=== PATIENT | female | born 1945 | race Caucasian/White ===

== ENCOUNTER 2022-01-31 08:48 | Outpatient (REF) | payer MEDICARE, OTHER, SELFPAY ==
--- NOTE | ~2022-01-31 | US_ITS ---
EXAMINATION: US ABDOMEN COMPLETE CLINICAL INFORMATION: Other specified abnormal findings of blood chemistry. COMPARISON: None TECHNIQUE: Real-time imaging of the abdominal viscera. Technically difficult study secondary to bowel gas and body habitus. FINDINGS: PANCREAS: Obscured by overlying bowel gas. ABDOMINAL AORTA: The proximal portion of the aorta is not well visualized, the mid and distal portions are unremarkable. INFERIOR VENA CAVA: Visualized portions of the IVC are unremarkable. LIVER: The liver is normal in size. The liver contour is normal. Increased hepatic echogenicity suggesting hepatic steatosis. No focal hepatic lesion. There is no intrahepatic biliary duct dilatation seen. GALLBLADDER: Surgically absent. COMMON BILE DUCT: Not well visualized. RIGHT KIDNEY: Cystic focus in the right renal interpolar region measuring up to 1.1 cm, simple appearing, which does not require follow-up. No hydronephrosis or renal calculi. The kidney measures 11.8 cm in maximum dimension. LEFT KIDNEY: Multiple cystic foci throughout the left kidney the largest measuring up to 2.1 cm in the lower pole, simple appearing, which does not require follow-up. No hydronephrosis or renal calculi. The kidney measures 11.9 cm in maximum dimension. SPLEEN: Normal. The spleen measures 12.3 cm in maximum dimension. FREE FLUID: None. US/US abdomen complete IMPRESSION: 1. Technical limitation secondary to patient body habitus. 2. Increased hepatic echogenicity suggesting hepatic steatosis. 3. Status post cholecystectomy. 4. Bilateral simple appearing renal cysts the largest measuring up to 2.1 cm in the lower pole of the left kidney, which do not require follow-up.
== END 2022-01-31 08:49 | disposition home or self-care (01) ==
LOC: HO.US 08:48
PROVIDERS: Visit Provider Internal Medicine
DX: R79.89 Other specified abnormal findings of blood chemistry (principal); R10.11 Right upper quadrant pain
CPT/HCPCS: 76700

== ENCOUNTER 2022-02-25 17:56 | Emergency (ER) | payer MEDICARE, OTHER, SELFPAY ==
--- NOTE | 2022-02-25 | ECG_ITS ---
Test Reason : chest pain Blood Pressure : / mmHG Vent. Rate : 090 BPM Atrial Rate : 090 BPM P-R Int : 168 ms QRS Dur : 090 ms QT Int : 382 ms P-R-T Axes : 056 018 032 degrees QTc Int : 467 ms Normal sinus rhythm Normal ECG When compared with ECG of 04-OCT-2018 10:40, No significant change was found Referred By: Generic ED Physician Electronically Signed By:Jack Ibarra
--- NOTE | ~2022-02-25 | XR_ITS ---
EXAMINATION: PORTABLE CHEST 1 VIEW CLINICAL INFORMATION: Congestion . COMPARISON: No recent pertinent prior studies are available for comparison. TECHNIQUE: Portable frontal view of the chest was obtained. FINDINGS: The lungs are well expanded. No focal infiltrate, effusion, edema, or pneumothorax. Cardiac and mediastinal silhouettes are within normal limits for technique. No acute bony abnormality seen. XR/XR chest 1V IMPRESSION: No evidence of acute disease.
[2022-02-25 18:06] VITALS: BP 211/75; PULSE 89; RESP 20; TEMP 37.3; O2SAT 94; BMI 37.1
[2022-02-25 20:43] LABS: COVID-19 Test Negative (Negative); IDNOW Serial# 08D9AD1C; Influenza A Negative (Negative); Influenza B2 Negative (Negative)
[2022-02-25 20:48] LABS: Appearance Urine HAZY; Color Urine YELLOW; Glucose Urine UA NEG (NEG); Leukocyte Esterase Urine 1+ (NEG); Nitrite Urine NEG (NEG); UACC Culture Trigger YES; Urine Blood NEG (NEG); Urine Ketones NEG (NEG); Urine Protein NEG (NEG-TRACE)
[2022-02-25 21:00] LABS: Mucus Urine 1+ /LPF; RBC Urine 0 /HPF (0); Squamous Epithelial Cell Urine 1+ /LPF
== END 2022-02-26 00:39 | disposition left against medical advice (07) ==
LOC: HO.ED 02-26 00:27
PROVIDERS: Emergency Provider Emergency Medicine; PCP Internal Medicine
DX: R09.89 Other specified symptoms and signs involving the circulatory and respiratory systems (principal); R07.89 Other chest pain; Z20.822 Contact with and (suspected) exposure to COVID-19
CPT/HCPCS: 71045; 81001; 87086; 87502; 87635; 93005; 99283

== ENCOUNTER 2022-05-09 13:32 | Outpatient (REF) | payer MEDICARE, OTHER, SELFPAY ==
[2022-05-09 14:12] LABS: Appearance Urine HAZY; Color Urine YELLOW; Glucose Urine UA NEG (NEG); Leukocyte Esterase Urine 1+ (NEG); Nitrite Urine NEG (NEG); PH 5.5 (5.0-8.0); Specific Gravity - Urine 1.025 (1.005-1.025); UACC Culture Trigger YES; Urine Blood NEG (NEG); Urine Ketones NEG (NEG); Urine Protein NEG (NEG-TRACE)
[2022-05-09 14:20] LABS: Squamous Epithelial Cell Urine 2+ /LPF
[2022-05-09 14:21] LABS: WBC Urine 50-75 /HPF (0-4)
[2022-05-09 14:22] LABS: Oval Fat Bodies Urine NOTED; Renal Epithelial Cells Urine 1+ /LPF
[2022-05-09 14:23] LABS: Bacteria Urine 1+ /LPF; Hyaline Casts Urine 0-2 /LPF; RBC Urine 0-2 /HPF (0)
== END 2022-05-09 13:33 | disposition home or self-care (01) ==
LOC: HO.LAB 13:32
PROVIDERS: PCP Internal Medicine; Visit Provider Internal Medicine
DX: N39.41 Urge incontinence (principal)
CPT/HCPCS: 81001; 87086

== ENCOUNTER 2023-01-30 11:07 | Outpatient (REF) | payer MEDICARE, OTHER, SELFPAY ==
--- NOTE | ~2023-01-30 | US_ITS ---
EXAMINATION: US THYROID CLINICAL INFORMATION: Nontoxic single thyroid nodule. COMPARISON: None available. TECHNIQUE: Linear transducer grayscale and color Doppler examination with attention to the region of the thyroid. FINDINGS: SIZE: Measurements of the thyroid lobes and nodules are given in sagittal, anteroposterior and transverse dimensions respectively. Right Thyroid Lobe: 4.4 x 2.0 x 1.7 cm, volume 7.8 mL. Parenchyma: The gland echotexture is homogeneous. Thyroid vascularity is normal. Left Thyroid Lobe: 4.5 x 1.5 x 1.4 cm, volume 4.9 mL. Parenchyma: The gland echotexture is homogeneous. Thyroid vascularity is normal. Isthmus: 0.48 cm in maximum AP dimension. Estimated total number of nodules greater than or equal to 1 cm: 1. Cutter And Edge Trimmer nodules are described as follows: 1. Location: Right superior/mid. Size: 1.1 x 0.6 x 1.0 cm, volume 0.3 mL. Nodule characteristics: Composition: Spongiform (0). Echogenicity: Anechoic (0). Shape: Not taller than wide (0). Margins: Smooth (0). Echogenic Foci: None (0). ACR TI-RADS total points: 0 ACR TI-RADS category: 1 2. Location: Left superior. Size: 0.3 x 0.2 x 0.3 cm, volume 0.009 mL. Nodule characteristics: Composition: Cystic(0). ACR TI-RADS total points: 0 ACR TI-RADS category: 1 3. Location: Left superior. Size: 0.3 x 0.2 x 0.3 cm, volume 0.009 mL. Nodule characteristics: Composition: Cystic(0). ACR TI-RADS total points: 0 ACR TI-RADS category: 1 4. Location: Left mid. Size: 0.4 x 0.3 x 0.3 cm, volume 0.019 mL. Nodule characteristics: Composition: Cystic(0). ACR TI-RADS total points: 0 ACR TI-RADS category: 1 NODES: No lymphadenopathy is seen in the tissue surrounding the thyroid gland. US/US thyroid IMPRESSION: Bilateral thyroid nodules are seen, as detailed. ACR TI-RADS RECOMMENDATION REFERENCE: Ultrasound-guided fine-needle aspiration, followup ultrasound, no further follow up. * TR1 (0 point) and TR2 (2 points): No FNA or follow up. * TR3 (3 points): FNA if more than or equal to 2.5 cm in maximum dimension, followup ultrasound in 1, 3 and 5 years if 1.5 to 2.4 cm in maximum dimension. * TR4 (4-6 points): FNA if more than or equal to 1.5 cm in maximum dimension, followup ultrasound in 1, 2, 3 and 5 years if 1 to 1.4 cm in maximum dimension. * TR5 (more than or equal to 7 points): FNA if more than or equal to 1 cm in maximum dimension, followup ultrasound every year for 5 years if 0.5 to 0.9 cm in maximum dimension. * TR3, TR4 or TR5 nodules that are below the size threshold for followup receive no follow up.
== END 2023-01-30 11:08 | disposition home or self-care (01) ==
LOC: HO.US 11:07
PROVIDERS: Visit Provider Internal Medicine
DX: E04.1 Nontoxic single thyroid nodule (principal)
CPT/HCPCS: 76536

== ENCOUNTER 2023-05-09 10:57 | Outpatient (AMB) | payer MEDICARE, OTHER, SELFPAY ==
--- NOTE | 2023-05-09 11:00 | A.OFFVIS_ITS ---
Intake Vital Signs 05/09/23 11:05 Height 5 ft 6 in Weight 233 lb 0.6 oz BMI 37.6 BP 142/90 H Blood Pressure Location Lt brachial Position Sitting Pulse 64 Pulse Source Pulse Oximeter Temp Source Skin Pulse Oximetry (%) 97 Oxygen Delivery Method Room Air Intake Visit Reasons: awv Intake Note: Patient is here for an Annual Wellness Visit. Collection Team Lead Required: No Allergies propoxyphene [From Darvon] Adverse Reaction (Mild, Verified 05/09/23 11:07) NAUSEA & VOMITING Fall Risk Assessment Fall risk assessment: No Falls in past year Date Fall Risk Assessed: 05/09/23 HPI HPI Comments History of Present Illness Details 77-year-old female past medical history significant for type 2 diabetes mellitus, CKD, peripheral vascular disease, GERD, hypercholesteremia, hypertension and obesity. Patient last seen in August patient presents today for an annual well visit. Patient had negative Cologuard screening in March 2022, recommended follow-up in 3 years. Patient reports bilateral lower extremity swelling states has been torsemide for years for this, patient reports was previously on 20 mg daily and was currently on 15 mg due to her kidney function being elevated in the past. Patient wondering if she can increase her torsemide to 20 mg daily. Will draw BNP and CMP to look at her kidney function. Patient advised to continue on 15mg torsemide daily until blood work is evaluated. Mammogram: Last done a few years ago, Currently refusing. Bone density screening:Refused Patient up today on recommended immunizations. [place] of care was reviewed with the patient patient was provided with a written screening schedule. [facility] Medical History (Updated 02/06/23 @ 15:09 by Joo Roberson MD) Breast cancer screening by mammogram Cataract Colon cancer screening Colonoscopy refused Constipation GERD (gastroesophageal reflux disease) Hemoptysis History of pericarditis Hypercholesterolemia Hypertension Obesity (BMI 30-39.9) Patellofemoral arthritis Peripheral vascular disease Respiratory tract infection RUQ abdominal pain Shortness of breath on exertion Thyroid nodule Urge incontinence Vitamin D deficiency Surgical History History of appendectomy History of cholecystectomy History of tubal ligation History of umbilical hernia repair Family History (Updated 10/19/20 @ 10:50 by KATHERIN Stiles) Father CAD (coronary artery disease) Diabetes CVD (cardiovascular disease) Mother CVD (cardiovascular disease) CHF (congestive heart failure) Brother DISH (diffuse idiopathic skeletal hyperostosis) Social History (Updated 03/13/22 @ 12:10 by Joo Roberson MD) Housing: House Alcohol intake: never Patient Tobacco Use Status: Former Tobacco user Years Smoked: smoked 6 months during youth but since that time has not smoked any e-Cigarette/Vaping Use: Never Used Second Hand Smoke Exposure: No Current occupational status: retired Cognitive needs: No Hearing needs: No Vision needs: Yes Questionnaire Medicare Wellness Checkup [age] What gender do you identify with?: female During the past 4 weeks, how much have you been bothered by emotional problems such as feeling anxious, depressed, irritable, sad or downhearted, and blue?: slightly During the past 4 weeks, has your physical & emotional health limited your social activities with family, friends, neighbors, or groups?: not at all During the past 4 weeks, how much bodily pain have you generally had?: moderate pain During the past 4 weeks, was someone available to help you if you needed & wanted help?: yes, as much as I wanted During the past 4 weeks, what was the hardest physical activity you could do for at least 2 minutes?: heavy Can you get to places out of walking distance without help? (For eg., can you travel alone on buses, taxis or drive your car?): Yes Can you go shopping for groceries or clothes without someone's help?: Yes Can you prepare your own meals?: Yes Can you do your housework without help?: Yes Because of any health problems, do you need the help of another person with your personal care needs such as eating, bathing, dressing or getting around the house?: No Can you handle your own money without help?: Yes During the past 4 weeks, how would you rate your health in general?: fair During the past 4 weeks how have things been going for you?: good & bad parts about equal Are you having difficulties driving your car?: no Do you always fasten your seat belt when you are in a car?: yes, usually During past 4 weeks, have you been bothered by the following: never: Sexual problems?, Trouble eating well?, Teeth or denture problems? and Problems using the telephone?, sometimes: Falling or dizzy when standing up (LIGHT HEADED ) and often: Tiredness or fatigue? (fatigue ) Have you fallen 2 or more times in the past year?: No Are you afraid of falling?: Yes Are you a smoker?: no During the past 4 weeks, how many drinks of wine, beer, or other alcoholic beverages did you have?: no alcohol at all Do you exercise for about 20 minutes 3 or more times a week?: no, I usually do not exercise this much Have you been given information to help with the following?: yes: Hazards in yo ur house that might hurt you? and yes: Keeping track of your medications? How often do you have trouble taking medicines the way you have been told to take them?: I always take medicine as prescribed How confident are you that you can control & manage most of your health problems?: very confident What is your race?: White Mini Mental State Exam (MMSE) Orientation What is the (year) (season) (date) (day) (month)?: year, season, date, day and month Score Score: 5 Activity of Daily Living Bathing - sponge bath, tub bath or shower: receives no assistance (gets in/out by self, if usual bathing means Dressing - getting clothes from closets & drawers, including inner/outer garments & fasteners.: gets clothes & gets completely dressed without help Toileting - going to the 'toilet room' for urine/bowel elimination & cleaning self/arranging clothes: goes to toilet room, cleans self, arranges clothes wit hout help Transfer: moves in & out of bed and chair without help (may use support object) Continence: controls urination/bowel movements completely by self Feeding: feeds self without help Total Score: 0 Information obtained from: patient Using telephone: independent Traveling: independent Shopping: independent Preparing meals: independent Housework: independent Taking medicine: independent Managing money: independent PHQ-9 Over the last 2 weeks, how often have you been bothered by any of the following problems? 1. Little interest or pleasure in doing things: not at all 2. Feeling down, depressed, or hopeless: several days 3. Trouble falling or staying asleep, or sleeping too much: not at all 4. Feeling tired or having little energy: not at all 5. Poor appetite or overeating: not at all 6. Feeling bad about yourself - or that you are a failure or have let yourself or your family down: not at all 7. Trouble concentrating on things, such as reading the newspaper or watching television: not at all 8. Moving or speaking so slowly that other people could have noticed. Or the opposite - being so fidgety or restless that you have been moving around a lot more than usual: not at all 9. Thoughts that you would be better off or of hurting yourself in some way: not at all Total score: 1 Depression Screening Interpretation: Negative 56248 - PHQ-9 Billing: Yes Source: Developed by Drs. Hugo Canales, Isa Thomason, Chon Post and colleagues, with an educational sandeep from [employer]. ADAM-7 AMB Questionnaire ADAM-7 Date ADAM - 7 assessed: 05/09/23 Feeling nervous, anxious, or on edge: 0 = Not at all Not being able to stop or control worryin = Not at all Worrying too much about different things: 0 = Not at all Trouble relaxin = Not at all Being so restless that it is hard to sit still: 0 = Not at all Becoming easily annoyed or irritable: 0 = Not at all Feeling afraid as if something awful might happen: 0 = Not at all Total ADAM-7 score (0-4 normal; 5-9 mild; 10-14 moderate; 15-21 severe): 0 Source: Developed by Drs. Hugo Canales, Isa Thomason, Chon Post and colleagues, with an educational sandeep from [employer]. ADAM-7 Assessment Billing ADAM-7 Assessment Tool: ADAM-7 Assessment 33907 Thrive Questionnaire Date Thrive assessed: 08/31/22 Physical Exam Vital Signs: Last Vital Signs Pulse 64 05/09/23 11:05 BP 142/90 H 05/09/23 11:05 Pulse Ox 97 05/09/23 11:05 Oxygen Delivery Method Room Air 05/09/23 11:05 BMI result Body Mass Index 37.6 Const General: cooperative and no acute distress Orientation/consciousness: patient oriented x3 HEENT Ears: other (whisper test: pass) Neuro General: patient oriented x3 Gait exam (Neuro): Normal gait present Coordination: tandem gait normal and Romberg test negative Results AMB Hemoglobin A1c AMB Hemoglobin A1c 7.2 % Last Edit by KATHERIN Daly on 05/09/23 11:20 Results Reviewed Results Reviewed: Laboratory Last Values Hgb A1c (Clinic) 7.2 % (4.0-6.0) H 05/09/23 11:19 Assessment & Plan Assessment & Plan (1) Hypertension: Code(s): I10 - Essential (primary) hypertension Plan: Continue carvedilol and lisinopril. Follow low-salt diet and exercise. (2) Hypercholesterolemia: Code(s): E78.00 - Pure hypercholesterolemia, unspecified Plan: Continue on simvastatin. Avoid fried foods, chicken skin, eggs, butter,margarine, pastries and? red meat. (3) Type 2 diabetes mellitus with hyperglycemia: Comment: [place] Dr. Marybeth Munoz Code(s): E11.65 - Type 2 diabetes mellitus with hyperglycemia Plan: Hemoglobin A1c today 7.2%. Patient educated to decrease the amount of carbohydrate intake such as pasta, bread, rice and potatoes are all sugar in addition to the sweet stuff. Remember that fruits are good but they also have sugar.Hemoglobin A1c goal of less than 7.0% Follow up in 3m months, If a1c remains elevated will have to discuss starting on diabetes medication. (4) Medicare annual wellness visit, subsequent: Code(s): Z00.00 - Encounter for general adult medical examination without abnormal findings Plan: Follow up in 1 year Plan Follow up in 3 months Orders: Orders B Type Natriuretic Peptide Today R22.43 - Localized swelling, mass and lump, lower limb, bilateral Comprehensive [place]. Panel Fast Today E11.65 - Type 2 diabetes mellitus with hyperglycemia Lipid Panel Today E78.00 - Pure hypercholesterolemia, unspecified TSH reflex Free T4 Today E04.1 - Nontoxic single thyroid nodule, Z13.29 - Encounter for screening for other suspected endocrine disorder Microalbumin, Random (w Creat) Today E11.65 - Type 2 diabetes mellitus with hyperglycemia Complete Blood Count Auto Diff Today Z13.0 - Encounter for screening for diseases of the blood and blood-forming organs and certain disorders involving the immune mechanism AMB Hemoglobin A1c Today E11.65 - Type 2 diabetes mellitus with hyperglycemia Quality Reporting (2019) Fall Risk Screening ([facility] 139) Last assessed Fall Risk: 05/09/23 Fall risk assessment: No Falls in past year Depression/Bipolar (159/160/161/177) PHQ-9: Total score: 1 Coding Level of Care Code Medicare Subsequent (G0439) Diagnoses Hypertension I10 Hypercholesterolemia E78.00 Type 2 diabetes mellitus with hyperglycemia E11.65 Medicare annual wellness visit, subsequent Z00.00 Additional Codes ADAM-7 Assessment Billing - ADAM-7 Assessment Tool: ADAM-7 Assessment [id number] ([id number])
[2023-05-09 11:05] VITALS: BP 142/90; PULSE 64; O2SAT 97; BMI 37.6
== END 2023-05-09 11:40 | disposition home or self-care (01) ==
PROVIDERS: Visit Provider Nurse Practitioner Family
DX: E11.65 Type 2 diabetes mellitus with hyperglycemia (principal)
CPT/HCPCS: 83036; G0439

== ENCOUNTER 2023-07-19 10:43 | Outpatient (REF) | payer MEDICARE, OTHER, SELFPAY ==
[2023-07-19 11:13] LABS: MANUAL DIFF FLAG NO
[2023-07-19 11:46] LABS: Basophils Percent Auto 0.4 % (0-2); Eosinophils Absolute Auto 0.3 X10*3/uL (0.0-0.4); Eosinophils Percent Auto 3.1 % (0-4); Hematocrit 36.2 % (37.0-47.0); Hemoglobin 11.7 g/dl (12.0-16.0); Imm Gran Abs Auto 0.03 X10*3/uL (0.00-0.03); Imm Gran Pct Auto 0.3 % (0.0-0.4); Lymphocytes Absolute Auto 2.8 X10*3/uL (1.2-4.9); Lymphocytes Percent Auto 29.6 % (20-40); Mean Corpuscular HGB Conc 32.3 g/dl (31.0-35.0); Mean Corpuscular Hemoglobin 29.4 pg (27.0-33.0); Mean Platelet Volume 9.8 fL (9.4-12.3); Monocytes Absolute Auto 0.6 X10*3/uL (0.1-1.2); Monocytes Percent Auto 6.2 % (2-11); Neutrophils Absolute Auto 5.7 x10*3/uL (2.0-8.3); Neutrophils Percent Auto 60.4 % (45-73); Platelet Count 311 X10*3/uL (160-400); Red Blood Count 3.98 X10*6/uL (4.20-5.50); Red Cell Distribution Width 12.6 % (11.0-16.0); White Blood Count 9.4 X10*3/uL (4.8-10.8)
[2023-07-19 12:09] LABS: B Type Natriuretic Peptide 28 pg/mL (<100)
[2023-07-19 13:05] LABS: Alanine Aminotransferase 17 U/L (0-31); Albumin Level 4.3 g/dL (3.5-5.0); Alkaline Phosphatase 52 U/L (39-117); Anion Gap 12 (12-20); Aspartate Amino Transferase 18 U/L (5-31); Bilirubin Total 0.4 mg/dL (0.0-1.0); Blood Urea Nitrogen 36 mg/dL (9-16); Calcium 10.2 mg/dL (8.4-10.2); Carbon Dioxide 29 mmol/L (22-29); Chloride 104 mmol/L (96-108); Cholesterol 148 mg/dL (<200); Estimated Glomerular Filt Rate 45; Glucose Fasting 135 mg/dL (60-99); HDL Cholesterol 42 mg/dL (>40); LDL Cholesterol Calculated 74 mg/dL (<100); Potassium 3.8 mmol/L (3.3-5.1); Sodium 141 mmol/L (135-145); Total Protein 7.9 g/dL (6.5-8.0); Triglycerides 163 mg/dL (<150)
[2023-07-19 14:30] LABS: Creatinine Urine 96.45 mg/dL
[2023-07-19 14:47] LABS: Microalbum/Creatinine Ratio Ur 1446.3 ug/mg cr (<30)
== END 2023-07-19 10:44 | disposition home or self-care (01) ==
LOC: HO.LAB 10:43
PROVIDERS: PCP Internal Medicine; Visit Provider Nurse Practitioner Family
DX: E78.00 Pure hypercholesterolemia, unspecified (principal); E11.65 Type 2 diabetes mellitus with hyperglycemia; E04.1 Nontoxic single thyroid nodule; R22.43 Localized swelling, mass and lump, lower limb, bilateral; Z13.29 Encounter for screening for other suspected endocrine disorder; Z13.0 Encounter for screening for diseases of the blood and blood-forming organs and certain disorders involving the immune mechanism
CPT/HCPCS: 36415; 80053; 80061; 82043; 82570; 83880; 84443; 85025

== ENCOUNTER 2023-09-25 13:26 | Outpatient (REF) | payer MEDICARE, OTHER, SELFPAY ==
[2023-09-25 13:42] LABS: MANUAL DIFF FLAG NO
[2023-09-25 14:02] LABS: Basophils Absolute Auto 0.1 X10*3/uL (0.0-0.2); Basophils Percent Auto 0.7 % (0-2); Eosinophils Absolute Auto 0.3 X10*3/uL (0.0-0.4); Eosinophils Percent Auto 3.6 % (0-4); Hematocrit 35.3 % (37.0-47.0); Hemoglobin 11.3 g/dl (12.0-16.0); Imm Gran Abs Auto 0.03 X10*3/uL (0.00-0.03); Imm Gran Pct Auto 0.4 % (0.0-0.4); Immature Retic Fraction 13.5 % (3.0-15.9); Lymphocytes Percent Auto 41.7 % (20-40); Mean Corpuscular Hemoglobin 29.5 pg (27.0-33.0); Mean Corpuscular Volume 92.2 fL (80.0-98.0); Mean Platelet Volume 9.7 fL (9.4-12.3); Monocytes Absolute Auto 0.5 X10*3/uL (0.1-1.2); Monocytes Percent Auto 6.2 % (2-11); Neutrophils Absolute Auto 3.4 x10*3/uL (2.0-8.3); Neutrophils Percent Auto 47.4 % (45-73); Platelet Count 305 X10*3/uL (160-400); Red Blood Count 3.83 X10*6/uL (4.20-5.50); Red Cell Distribution Width 13.3 % (11.0-16.0); Retic HGB Equivalent 33.7 pg (30.0-35.0); Reticulocyte Percent 1.6 % (0.5-1.8); Reticulocytes Absolute 0.063 X10*6/uL (0.026-0.095); White Blood Count 7.3 X10*3/uL (4.8-10.8)
[2023-09-25 14:36] LABS: Estimated Average Glucose 146 mg/dL; Hemoglobin A1c % 6.7 % (<6.0)
[2023-09-25 14:40] LABS: Appearance Urine Cloudy; Color Urine Yellow; Glucose Urine UA Negative (Negative); Leukocyte Esterase Urine Moderate (2+) (Negative); Nitrite Urine Negative (Negative); PH 5.5 (5.0-9.0); UMIC TRIGGER UA YES; Urine Blood Negative (Negative); Urine Ketones Negative (Negative); Urine Protein Negative (Neg-Trace)
[2023-09-25 14:41] LABS: Alanine Aminotransferase 14 U/L (0-31); Albumin Level 4.3 g/dL (3.5-5.0); Alkaline Phosphatase 49 U/L (39-117); Anion Gap 11 (12-20); Aspartate Amino Transferase 18 U/L (5-31); Bilirubin Total 0.3 mg/dL (0.0-1.0); Blood Urea Nitrogen 30 mg/dL (9-16); Calcium 9.9 mg/dL (8.4-10.2); Carbon Dioxide 30 mmol/L (22-29); Chloride 104 mmol/L (96-108); Estimated Glomerular Filt Rate 55; Glucose Random 104 mg/dL (60-115); Iron 82 mcg/dL (30-160); Percent Iron Saturation 25 % (15-50); Sodium 141 mmol/L (135-145); Total Iron Binding Capacity 334 mcg/dL (228-428); Total Protein 7.7 g/dL (6.5-8.0); Unsaturated Iron Binding 252 ug/dL
[2023-09-25 14:43] LABS: Bacteria Urine None Seen (None Seen); Hyaline Casts Urine 0-2 /LPF (0-2); RBC Urine 0-2 /HPF (0-2); WBC Urine >50 /HPF (0-5)
[2023-09-25 14:55] LABS: Ferritin 242 ng/mL (10-250)
[2023-09-25 15:06] LABS: Vitamin B12 504 pg/mL (200-900)
== END 2023-09-25 13:27 | disposition home or self-care (01) ==
LOC: HO.LAB 13:26
PROVIDERS: PCP Internal Medicine; Visit Provider Internal Medicine
DX: E11.65 Type 2 diabetes mellitus with hyperglycemia (principal); N18.31 Chronic kidney disease, stage 3a
CPT/HCPCS: 36415; 80053; 81001; 82607; 82728; 82746; 83036; 83540; 85025; 85045

== ENCOUNTER 2023-10-02 10:55 | Outpatient (AMB) | payer MEDICARE, OTHER, SELFPAY ==
[2023-10-02 10:56] VITALS: BP 144/90; PULSE 62; O2SAT 99; BMI 36.8
--- NOTE | 2023-10-02 10:56 | A.OFFPC_ITS ---
Vital Signs 10/02/23 10:56 Height 5 ft 6 in Weight 228 lb 0.4 oz BMI 36.8 BP 144/90 H Blood Pressure Location Lt brachial Position Sitting Pulse 62 Pulse Source Pulse Oximeter Pulse Oximetry (%) 99 Oxygen Delivery Method Room Air Intake Visit Reasons: DM, CKD, Hyperlipidemia Channel Marketing Specialist Required: No Allergies propoxyphene [From Darvon] Adverse Reaction (Mild, Verified 10/02/23 11:11) NAUSEA & VOMITING Medication List - Last Reconciled 10/02/23 by KAVON Bryan carvedilol 25 mg PO BID 90 days cetirizine (Zyrtec) 10 mg PO DAILY PRN fenofibrate nanocrystallized 145 mg PO DAILY 90 days lisinopril 40 mg PO DAILY nitrofurantoin monohyd/m-cryst 100 mg (Macrobid) 100 mg PO Q12H 7 days oxybutynin chloride 5 mg PO BID 90 days simvastatin 10 mg PO DAILY torsemide 10 mg PO DAILY Tobacco use date assessed: 10/02/23 Fall risk assessment: No Falls in past year Last assessed Fall Risk: 10/02/23 Dental Screening Dental Screen Date: 10/02/23 Did you have a dental visit in the last 12 months?: No Did you have a dental problem in the last 6 months where you did not have access to dental care?: No HPI DM, CKD, Hyperlipidemia HPI Details Patient is a 78-year-old female who presents today for a routine follow-up. Patient of Dr. Roberson. Medical history significant for hypertension, hypercholesterolemia, obesity, CKD-followed by Nephrology Dr. Elizondo, diabetes type 2-diet controlled, thyroid nodule-followed by endocrinology. Patient reports that she is compliant with medications and denies side effects. Reports systolic blood pressures at home between 136 and 138, diastolic BP is in 80s. Denies shortness of breath or chest pain. Currently on antibiotics for UTI. [facility] Medical History Colonoscopy refused Respiratory tract infection Shortness of breath on exertion Hemoptysis RUQ abdominal pain Breast cancer screening by mammogram Colon cancer screening Cataract History of pericarditis Constipation Thyroid nodule Urge incontinence Vitamin D deficiency Peripheral vascular disease Patellofemoral arthritis GERD (gastroesophageal reflux disease) Obesity (BMI 30-39.9) Hypercholesterolemia Hypertension Surgical History History of umbilical hernia repair History of tubal ligation History of appendectomy History of cholecystectomy Family History Father CAD (coronary artery disease) Diabetes CVD (cardiovascular disease) Mother CVD (cardiovascular disease) CHF (congestive heart failure) Brother DISH (diffuse idiopathic skeletal hyperostosis) Social History Housing: House Alcohol intake: never Patient Tobacco Use Status: Former Tobacco user Years Smoked: smoked 6 months during youth but since that time has not smoked any e-Cigarette/Vaping Use: Never Used Second Hand Smoke Exposure: No Current occupational status: retired Cognitive needs: No Hearing needs: No Vision needs: Yes Questionnaire Thrive Questionnaire Date Thrive assessed: 08/31/22 AUDIT C Alcohol Use Questionnaire (AUDIT-C) 1. How often do you have a drink containing alcohol?: Monthly or less 2. How many drinks containing alcohol do you have on a typical day when you are drinking?: 1 or 2 3. How often do you have six or more drinks on one occasion?: Never Total Score: 1 Score Reviewed/Action Taken: No ADAM-7 AMB Questionnaire ADAM-7 Date ADAM - 7 assessed: 05/09/23 Source: Developed by Drs. Hugo Canales, Isa Thomason, Chon Post and colleagues, with an educational sandeep from [employer] Review of Systems Const Denies body aches, Denies chills, Denies fever(s) and Denies headache(s) Eyes Denies change in vision ENT Denies dizziness, Denies otalgia, Denies headache(s), Denies nasal discharge, Denies sinus pain and Denies sore throat Card Denies chest pain, Denies lightheadedness and Denies dyspnea Resp Denies cough, Denies dyspnea and Denies wheezing GI Denies abdominal pain Musc Denies myalgias Neuro Denies dizziness and Denies headache(s) Aller/Immun Denies wheezing Physical exam (Primary Care) Vital Signs: Last Vital Signs Pulse 62 10/02/23 10:56 BP 144/90 H 10/02/23 10:56 Pulse Ox 99 10/02/23 10:56 Oxygen Delivery Method Room Air 10/02/23 10:56 BMI result Body Mass Index 36.8 Tobacco/Smoking Status: Tobacco use Status Tobacco use date assessed 10/02/23 10/02/23 10:57 Patient Tobacco Use Status Former Tobacco user 10/02/23 10:57 e-Cigarette/Vaping Use Never Used 10/02/23 10:57 Thrive Assessment: Date of Thrive Assessment Date Thrive assessed 08/31/22 10/02/23 10:57 Const General: cooperative and no acute distress Orientation/consciousness: patient oriented x3 HENMT Head: Yes normocephalic and Yes atraumatic Face and sinus: Yes sinuses nontender Mouth: oropharynx normal and moist mucous membranes Throat: Yes posterior oropharynx normal Eyes General: appearance normal, both eyes and all related structures Neck Neck: Yes normal visual inspection and Yes full ROM Resp Effort & Inspection: normal respiratory effort and able to speak in complete sentences Auscultation: clear to auscultation bilaterally, no crackles, no rales, no rhonchi and no wheezes Cardio Rate: regular rate Rhythm: regular rhythm Heart sounds: S1 normal heart sound present and S2 normal heart sound present GI Auscultation: normal bowel sounds Skin General skin exam: no rashes or lesions noted Neuro General: patient oriented x3 Gait exam (Neuro): Normal gait present Extrem Other: Trace edema to bilateral lower extremity R>L General: Yes full ROM Assessment and Plan Assessment & Plan (1) Type 2 diabetes mellitus with hyperglycemia: Comment: [facility] Dr. Marybeth lance Code(s): E11.65 - Type 2 diabetes mellitus with hyperglycemia Plan: A1c 6.7 08/2023 Diabetes diet controlled Reinforced low-carbohydrate diet (2) Chronic kidney disease (CKD) stage G3a/A1, moderately decreased glomerular filtration rate (GFR) between 45-59 mL/min/1.73 square meter and albuminuria creatinine ratio less than 30 mg/g: Code(s): N18.31 - Chronic kidney disease, stage 3a Plan: Creatinine 0.98, GFR 55 08/2023 continue to follow-up with nephrology next visit 10/2019 for (3) Hypercholesterolemia: Code(s): E78.00 - Pure hypercholesterolemia, unspecified Plan: Continue fenofibrate and simvastatin Low-cholesterol diet (4) Hypertension: Code(s): I10 - Essential (primary) hypertension Plan: Goal BP equal or less than 140/90 Continue carvedilol, lisinopril, torsemide Low-sodium diet and weight loss Orders: Orders Comprehensive [place]. Panel Fast 3 Months I10 - Essential (primary) hypertension Hemoglobin A1c 3 Months E11.65 - Type 2 diabetes mellitus with hyperglycemia Lipid Panel 3 Months E78.00 - Pure hypercholesterolemia, unspecified Coding Level of Care Code Est Pt Level 4 (47885) Diagnoses Type 2 diabetes mellitus with hyperglycemia E11.65 Chronic kidney disease (CKD) stage G3a/A1, moderately decreased glomerular filtration rate (GFR) between 45-59 mL/min/1.73 square meter and albuminuria creatinine ratio less than 30 mg/g N18.31 Hypercholesterolemia E78.00 Hypertension I10
== END 2023-10-02 11:24 | disposition home or self-care (01) ==
PROVIDERS: PCP Internal Medicine; Visit Provider Nurse Practitioner Family
DX: E11.65 Type 2 diabetes mellitus with hyperglycemia (principal); I12.9 Hypertensive chronic kidney disease with stage 1 through stage 4 chronic kidney disease, or unspecified chronic kidney disease; N18.31 Chronic kidney disease, stage 3a; E78.00 Pure hypercholesterolemia, unspecified
CPT/HCPCS: 99214

== ENCOUNTER 2023-12-04 12:24 | Outpatient (REF) | payer MEDICARE, OTHER, SELFPAY ==
[2023-12-04 13:49] LABS: Appearance Urine Cloudy; Color Urine Yellow; Glucose Urine UA 100 mg/dL (Negative); Leukocyte Esterase Urine Large (3+) (Negative); Nitrite Urine Negative (Negative); UMIC TRIGGER UACC YES; Urine Blood Trace (Negative); Urine Ketones Negative (Negative); Urine Protein Negative (Neg-Trace)
[2023-12-04 13:54] LABS: Bacteria Urine 4+ (None Seen); Hyaline Casts Urine 0-2 /LPF (0-2); RBC Urine 0-2 /HPF (0-2); Squamous Epithelial Cell Urine 0-2 /HPF (0-2); UACC Culture Trigger YES; WBC Urine >50 /HPF (0-5)
== END 2023-12-04 12:25 | disposition home or self-care (01) ==
LOC: HO.LAB 12:24
PROVIDERS: PCP Internal Medicine; Visit Provider Internal Medicine
DX: R39.9 Unspecified symptoms and signs involving the genitourinary system (principal)
CPT/HCPCS: 81001; 87086; 87088; 87186

== ENCOUNTER 2024-01-06 11:19 | Outpatient (REF) | payer MEDICARE, OTHER, SELFPAY ==
[2024-01-06 12:36] LABS: Estimated Average Glucose 134 mg/dL; Hemoglobin A1c % 6.3 % (<6.0)
[2024-01-06 13:18] LABS: Alanine Aminotransferase 14 U/L (0-31); Albumin Level 4.3 g/dL (3.5-5.0); Alkaline Phosphatase 48 U/L (39-117); Anion Gap 14 (12-20); Aspartate Amino Transferase 16 U/L (5-31); Bilirubin Total 0.4 mg/dL (0.0-1.0); Blood Urea Nitrogen 27 mg/dL (9-16); Calcium 9.9 mg/dL (8.4-10.2); Carbon Dioxide 29 mmol/L (22-29); Chloride 105 mmol/L (96-108); Cholesterol 154 mg/dL (<200); Estimated Glomerular Filt Rate 55; Glucose Fasting 111 mg/dL (60-99); HDL Cholesterol 54 mg/dL (>40); LDL Cholesterol Calculated 75 mg/dL (<100); Potassium 3.7 mmol/L (3.3-5.1); Sodium 144 mmol/L (135-145); Total Protein 7.6 g/dL (6.5-8.0); Triglycerides 127 mg/dL (<150)
[2024-01-06 13:22] LABS: Appearance Urine Clear; Color Urine Yellow; Glucose Urine UA Negative (Negative); Leukocyte Esterase Urine Trace (Negative); Nitrite Urine Negative (Negative); Specific Gravity - Urine 1.015 (1.005-1.025); UMIC TRIGGER UACC YES; Urine Blood Negative (Negative); Urine Ketones Negative (Negative); Urine Protein Negative (Neg-Trace)
[2024-01-06 13:27] LABS: Bacteria Urine None Seen (None Seen); RBC Urine 0-2 /HPF (0-2); Squamous Epithelial Cell Urine 0-2 /HPF (0-2); WBC Urine 0-5 /HPF (0-5)
== END 2024-01-06 11:20 | disposition home or self-care (01) ==
LOC: HO.LAB 11:19
PROVIDERS: PCP Internal Medicine; Visit Provider Nurse Practitioner Family
DX: I10 Essential (primary) hypertension (principal); R39.9 Unspecified symptoms and signs involving the genitourinary system; E78.00 Pure hypercholesterolemia, unspecified; E11.65 Type 2 diabetes mellitus with hyperglycemia
CPT/HCPCS: 36415; 80053; 80061; 81001; 81003; 83036

== ENCOUNTER 2024-01-08 11:24 | Outpatient (AMB) | payer MEDICARE, OTHER, SELFPAY ==
[2024-01-08 11:34] VITALS: BP 140/88; PULSE 78; O2SAT 98; BMI 36.6
--- NOTE | 2024-01-08 11:34 | MHC.PC.OV ---
Vital Signs 01/08/24 11:34 Height 5 ft 6 in Weight 227 lb BMI 36.6 BP 140/88 H Blood Pressure Location Lt brachial Position Sitting Pulse 78 Pulse Source Pulse Oximeter Pulse Oximetry (%) 98 Oxygen Delivery Method Room Air Intake Visit Reasons: DM , Hand Pain, Back pain Allergies sulfamethoxazole [From Bactrim] Adverse Reaction (Severe, Verified 01/08/24 11:42) Joint pain/Hand Pain trimethoprim [From Bactrim] Adverse Reaction (Severe, Verified 01/08/24 11:42) Joint pain/Hand Pain propoxyphene [From Darvon] Adverse Reaction (Mild, Verified 01/08/24 11:42) NAUSEA & VOMITING Tobacco use date assessed: 01/08/24 Fall risk assessment: No Falls in past year Last assessed Fall Risk: 01/08/24 Dental Screening Dental Screen Date: 01/08/24 Did you have a dental visit in the last 12 months?: Yes Did you have a dental problem in the last 6 months where you did not have access to dental care?: No Was dental information given to patient?: Patient has dentist HPI DM HPI Details 78-year-old obese female with diabetes mellitus hypercholesterolemia hypertension coming in for follow-up. Last seen in April 2023. Patient declined: Testing declined mammogram and declined bone density. Patient has seen Endocrinology in November 2023 Itzel Lowe regarding the nontoxic multinodular goiter with hypothyroidism normal-sized thyroid gland negligible risk of thyroid cancer do not require ultrasound yearly TSH diet controlled diabetes. woke in am R hand ONLY- states had a reaction from bactrim? PAIN on the r hand with numbness first 3 fingers but dicussed that this looks more CTS.. pulse is good on r hand PFSH Medical History Colonoscopy refused Respiratory tract infection Shortness of breath on exertion Hemoptysis RUQ abdominal pain Breast cancer screening by mammogram Colon cancer screening Cataract History of pericarditis Constipation Thyroid nodule Urge incontinence Vitamin D deficiency Peripheral vascular disease Patellofemoral arthritis GERD (gastroesophageal reflux disease) Obesity (BMI 30-39.9) Hypercholesterolemia Hypertension Surgical History History of umbilical hernia repair History of tubal ligation History of appendectomy History of cholecystectomy Family History (Updated 01/08/24 @ 11:35 by Krissy Vergara AGENCY MANAGER) Father CAD (coronary artery disease) Diabetes CVD (cardiovascular disease) Mother CVD (cardiovascular disease) CHF (congestive heart failure) Brother DISH (diffuse idiopathic skeletal hyperostosis) Social History Housing: House Alcohol intake: never Patient Tobacco Use Status: Former Tobacco user Tobacco use type: Cigarette Years Smoked: smoked 6 months during youth but since that time has not smoked any e-Cigarette/Vaping Use: Never Used Second Hand Smoke Exposure: No Current occupational status: retired Cognitive needs: No Hearing needs: No Vision needs: Yes Questionnaire PHQ-9 Over the last 2 weeks, how often have you been bothered by any of the following problems? 1. Little interest or pleasure in doing things: not at all 2. Feeling down, depressed, or hopeless: several days 3. Trouble falling or staying asleep, or sleeping too much: not at all 4. Feeling tired or having little energy: not at all 5. Poor appetite or overeating: not at all 6. Feeling bad about yourself - or that you are a failure or have let yourself or your family down: not at all 7. Trouble concentrating on things, such as reading the newspaper or watching television: not at all 8. Moving or speaking so slowly that other people could have noticed. Or the opposite - being so fidgety or restless that you have been moving around a lot more than usual: not at all 9. Thoughts that you would be better off or of hurting yourself in some way: not at all Total score: 1 Depression Screening Interpretation: Negative Depression Screening Done: Yes 67511 - PHQ-9 Billing: Yes Source: Developed by Drs. Hugo Canales, Isa Thomason, Chon Post and colleagues, with an educational sandeep from [employer]. Thrive Questionnaire Date Thrive assessed: 01/08/24 I am a: Patient What is your living situation today?: I have a steady place to live Within the past 12 months, did the food you bought not last and you didn't have the money to get more?: Never true Within the past 12 months, did you worry whether your food would run out before you got money to buy more?: Never true Do you have trouble paying for medicines?: No Do you have trouble getting transportation to medical appointments?: No Do you have trouble paying your heating and electricity bill?: No Do you have trouble taking care of your child, family member or friend?: No Do you have trouble with day-to-day activities such as bathing, preparing meals, shopping, managing finances, etc.?: No Are you currently unemployed and looking for a job?: No Are you interested in more education?: No Currently or been in a relationship where the following occur: no concerns reported THRIVE Score: 0 AUDIT C Alcohol Use Questionnaire (AUDIT-C) 1. How often do you have a drink containing alcohol?: Monthly or less 2. How many drinks containing alcohol do you have on a typical day when you are drinking?: 1 or 2 3. How often do you have six or more drinks on one occasion?: Never Total Score: 1 Score Reviewed/Action Taken: No ADAM-7 AMB Questionnaire ADAM-7 Date ADAM - 7 assessed: 01/08/24 Feeling nervous, anxious, or on edge: 0 = Not at all Not being able to stop or control worryin = Not at all Worrying too much about different things: 0 = Not at all Trouble relaxin = Not at all Being so restless that it is hard to sit still: 0 = Not at all Becoming easily annoyed or irritable: 0 = Not at all Feeling afraid as if something awful might happen: 0 = Not at all Total ADAM-7 score (0-4 normal; 5-9 mild; 10-14 moderate; 15-21 severe): 0 Source: Developed by Drs. Hugo Canales, Isa Thomason, Chon Post and colleagues, with an educational sandeep from [employer]. Physical exam (Primary Care) Vital Signs: Last Vital Signs Pulse 78 01/08/24 11:34 BP 140/88 H 01/08/24 11:34 Pulse Ox 98 01/08/24 11:34 Oxygen Delivery Method Room Air 01/08/24 11:34 BMI result Body Mass Index 36.6 Tobacco/Smoking Status: Tobacco use Status Tobacco use date assessed 01/08/24 01/08/24 11:44 Patient Tobacco Use Status Former Tobacco user 01/08/24 11:44 Tobacco use type Cigarette 01/08/24 11:44 e-Cigarette/Vaping Use Never Used 01/08/24 11:44 PHQ-9: PHQ-9 Score PHQ-9: Total score 1 01/08/24 11:44 Depression Screening Interpretation: Negative Thrive Assessment: Date of Thrive Assessment Date Thrive assessed 01/08/24 01/08/24 11:44 Currently or been in a relationship where the following occur: no concerns reported Const General: alert; No acute distress Eyes Conjunctivae: conjunctivae normal Resp Auscultation: clear to auscultation bilaterally Cardio Rate: regular rate Rhythm: regular rhythm GI Inspection: Yes normal to inspection Extrem General: Yes normal to inspection and No edema Assessment and Plan Assessment & Plan (1) Type 2 diabetes mellitus with hyperglycemia: Comment: [facility]soDr. Rueda Code(s): E11.65 - Type 2 diabetes mellitus with hyperglycemia Plan: Decrease the amount of carbohydrate intake, pasta, bread, rice and potatoes are all sugar and that is aside from all the sweet stuff, remember that fruits are good but they are Sweet also. Hemoglobin A1c goal of less than 7.0 patient is diet controlled (2) Hypertension: Code(s): I10 - Essential (primary) hypertension Plan: Continue with blood pressure medication. Decrease salt intake and exercise on lisinopril 40 mg once a day carvedilol 25 mg twice a day (3) Hypercholesterolemia: Code(s): E78.00 - Pure hypercholesterolemia, unspecified Plan: Avoid fried foods, chicken skin, eggs, butter margarine, pastries and meat. Be it pork or beef they have a lot of cholesterol June 2023 simvastatin 10 mg once a day LDL goal of less than 100 and triglyceride of less than 150 (4) Obesity (BMI 30-39.9): Code(s): E66.9 - Obesity, unspecified Plan: Diet and exercise (5) GERD (gastroesophageal reflux disease): Code(s): K21.9 - Gastro-esophageal reflux disease without esophagitis Plan: Avoid the foods that causes that usually spicy foods, tomato products, juices, coffee, soda and foods that your sensitive to. After eating do not lie down, allow 3-4 hours before in lie down. And keep the head of bed above 30 degrees to avoid the acid from going up. (6) Thyroid nodule: Comment: January 2023 Code(s): E04.1 - Nontoxic single thyroid nodule Plan: Reviewed the notes from endocrinology in October 2023 yearly monitoring of TSH and examination. (7) Numbness of right hand: Code(s): R20.0 - Anesthesia of skin Orders: Orders NE electromyogram (EMG) Today R20.0 - Anesthesia of skin NE nerve conduction velocity Today R20.0 - Anesthesia of skin Medications: Changed From oxybutynin chloride ER 15 mg PO DAILY 30 tabs 0RF N39.41 - Urge incontinence To oxybutynin chloride ER 15 mg PO BID 60 tabs 3RF N39.41 - Urge incontinence Discontinued sulfamethoxazole-trimethoprim 800-160 mg (Bactrim DS) Discontinued Reason: Ancillary Entered New Order 1 tab PO BID 14 tabs 0RF Coding Level of Care Code Est Pt Level 4 (21016) Diagnoses Type 2 diabetes mellitus with hyperglycemia E11.65 Hypertension I10 Hypercholesterolemia E78.00 Obesity (BMI 30-39.9) E66.9 GERD (gastroesophageal reflux disease) K21.9 Thyroid nodule E04.1 Numbness of right hand R20.0
== END 2024-01-08 12:19 | disposition home or self-care (01) ==
PROVIDERS: PCP Internal Medicine; Visit Provider Internal Medicine
DX: E11.65 Type 2 diabetes mellitus with hyperglycemia (principal); E04.1 Nontoxic single thyroid nodule; E78.00 Pure hypercholesterolemia, unspecified; M79.641 Pain in right hand; K21.9 Gastro-esophageal reflux disease without esophagitis
CPT/HCPCS: 99214

== ENCOUNTER 2024-03-06 10:46 | Outpatient (REF) | payer MEDICARE, OTHER, SELFPAY ==
--- NOTE | 2024-03-06 10:49 | EMG_ITS ---
Chief complaint: Acute onset numbness right 1st to 3rd digits. Reason for referral: Evaluate for Carpal Tunnel Syndrome Referred by: Dr. Yulissa Garsia Procedure done: Right upper extremity NCS Precautions and/or limitations: Needle phobia The limb temperature was monitored continuously and remained between 32-36 degrees C during the performance of the NCS. Nerve Conduction Studies Anti Sensory Summary Table ?Stim Site NR Onset (ms) Norm Onset (ms) Peak (ms) Norm Peak (ms) O-P Amp (?V) Norm O-P Amp Site1 Site2 Delta-0 (ms) Dist (cm) Shashi (m/s) Norm Shashi (m/s) Right Median Anti Sensory (2nd Digit) Wrist NR <3.6 >10 Wrist 2nd Digit 14.0 Right Radial Anti Sensory (Thumb) Forearm ? 1.7 2.2 <3.1 6.0 Forearm Thumb 1.7 0.0 Right Ulnar Anti Sensory (5th Digit) Wrist ? 2.4 3.1 <3.7 15.5 >15.0 Wrist 5th Digit 2.4 14.0 58 Motor Summary Table ?Stim Site NR Onset (ms) Norm Onset (ms) O-P Amp (mV) Norm O-P Amp iAmp (mV) Amp (1st) (%) Site1 Site2 Delta-0 (ms) Dist (cm) Shashi (m/s) Norm Shashi (m/s) Right Median Motor (Abd Poll Brev) Wrist ? 5.7 <3.9 8.0 >4.5 9.8 100.0 Elbow Wrist 4.2 20.0 48 >45 Elbow ? 9.9 8.0 9.5 100.0 Right Ulnar Motor (Abd Dig Minimi) Wrist ? 2.8 <3.0 7.4 >5 9.1 100.0 B Elbow Wrist 3.7 19.5 53 >45 B Elbow ? 6.5 6.2 7.6 83.8 A Elbow B Elbow 1.6 10.0 63 >45 A Elbow ? 8.1 5.5 6.8 74.3 FINDINGS: Right median motor nerve showed prolonged distal latency, normal amplitude and normal conduction velocity. Right median sensory nerve showed absent response. All other nerves tested were within normal. Needle EMG deferred. Patient afraid of needles. IMPRESSION: 1. This is an abnormal study. 2. There is electrodiagnostic evidence for right moderate-severe median neuropathy at the wrist, consistent with carpal tunnel syndrome. 3. There is no electrodiagnostic evidence for ulnar neuropathy. CODIN MTDD
== END 2024-03-06 10:47 | disposition home or self-care (01) ==
LOC: HO.NEURO 10:46
PROVIDERS: PCP Internal Medicine; Visit Provider Internal Medicine
DX: R20.2 Paresthesia of skin (principal)
CPT/HCPCS: 95909

== ENCOUNTER → 2024-03-06 10:49 | Outpatient (BNV) | payer MEDICARE, OTHER, SELFPAY | PROVIDERS: PCP Internal Medicine; Visit Provider Physical Medicine & Rehabilitation | DX: G56.01 Carpal tunnel syndrome, right upper limb (principal); G56.11 Other lesions of median nerve, right upper limb | CPT/HCPCS: 95909 ==

== ENCOUNTER 2024-04-29 11:18 | Outpatient (AMB) | payer MEDICARE, OTHER, SELFPAY ==
[2024-04-29 11:52] VITALS: BP 148/92; PULSE 77; O2SAT 97; BMI 35.8
--- NOTE | 2024-04-29 11:52 | A.OFFPC_ITS ---
Vital Signs 04/29/24 11:52 Height 5 ft 6 in Weight 100.698 kg BMI 35.8 BP 148/92 H Blood Pressure Location Lt brachial Position Sitting Pulse 77 Pulse Source Pulse Oximeter Pulse Oximetry (%) 97 Oxygen Delivery Method Room Air Intake Visit Reasons: 3 Month F/U Allergies sulfamethoxazole [From Bactrim] Adverse Reaction (Severe, Verified 01/08/24 11:42) Joint pain/Hand Pain trimethoprim [From Bactrim] Adverse Reaction (Severe, Verified 01/08/24 11:42) Joint pain/Hand Pain propoxyphene [From Darvon] Adverse Reaction (Mild, Verified 01/08/24 11:42) NAUSEA & VOMITING Tobacco use date assessed: 01/08/24 Fall risk assessment: No Falls in past year Last assessed Fall Risk: 04/29/24 Dental Screening Dental Screen Date: 01/08/24 HPI 3 Month F/U HPI Details 78-year-old obese female with uncontroll ed diabetes mellitus hypertension hypercholesterolemia GERD last seen in 01/15/2024. Patient's Cologuard is up-to-date mammogram declined. Review of the notes had an EMG done showing moderately severe carpal tunnel syndrome on the right. Denies any urinary symptoms PFSH Medical History (Updated 04/29/24 @ 12:46 by Joo Roberson MD) Numbness of right hand Colonoscopy refused Respiratory tract infection Shortness of breath on exertion Hemoptysis RUQ abdominal pain Breast cancer screening by mammogram Colon cancer screening Cataract History of pericarditis Constipation Thyroid nodule Urge incontinence Vitamin D deficiency Peripheral vascular disease Patellofemoral arthritis GERD (gastroesophageal reflux disease) Obesity (BMI 30-39.9) Hypercholesterolemia Hypertension Surgical History History of umbilical hernia repair History of tubal ligation History of appendectomy History of cholecystectomy Family History (Updated 01/08/24 @ 11:35 by Krissy Vergara CMA) Father CAD (coronary artery disease) Diabetes CVD (cardiovascular disease) Mother CVD (cardiovascular disease) CHF (congestive heart failure) Brother DISH (diffuse idiopathic skeletal hyperostosis) Social History Housing: House Alcohol intake: never Patient Tobacco Use Status: Former Tobacco user Tobacco use type: Cigarette Years Smoked: smoked 6 months during youth but since that time has not smoked any e-Cigarette/Vaping Use: Never Used Second Hand Smoke Exposure: No Current occupational status: retired Cognitive needs: No Hearing needs: No Vision needs: Yes Questionnaire PHQ-9 Over the last 2 weeks, how often have you been bothered by any of the following problems? 1. Little interest or pleasure in doing things: not at all 2. Feeling down, depressed, or hopeless: several days 3. Trouble falling or staying asleep, or sleeping too much: not at all 4. Feeling tired or having little energy: not at all 5. Poor appetite or overeating: not at all 6. Feeling bad about yourself - or that you are a failure or have let yourself or your family down: not at all 7. Trouble concentrating on things, such as reading the newspaper or watching television: not at all 8. Moving or speaking so slowly that other people could have noticed. Or the opposite - being so fidgety or restless that you have been moving around a lot more than usual: not at all 9. Thoughts that you would be better off or of hurting yourself in some way: not at all Total score: 1 Depression Screening Interpretation: Negative Depression Screening Done: Yes 09482 - PHQ-9 Billing: Yes Source: Developed by Drs. Hugo Canales, Chon Paul and colleagues, with an educational sandeep from [employer]. Thrive Questionnaire Date Thrive assessed: 01/08/24 AUDIT C Alcohol Use Questionnaire (AUDIT-C) 1. How often do you have a drink containing alcohol?: Monthly or less 2. How many drinks containing alcohol do you have on a typical day when you are drinking?: 1 or 2 3. How often do you have six or more drinks on one occasion?: Never Total Score: 1 Score Reviewed/Action Taken: No ADAM-7 AMB Questionnaire ADAM-7 Date ADAM - 7 assessed: 01/08/24 Source: Developed by Drs. Hugo Canales, Chon Paul and colleagues, with an educational sandeep from [employer]. Physical exam (Primary Care) Vital Signs: Last Vital Signs Pulse 77 04/29/24 11:52 BP 148/92 H 04/29/24 11:52 Pulse Ox 97 04/29/24 11:52 Oxygen Delivery Method Room Air 04/29/24 11:52 BMI result Body Mass Index 35.8 Tobacco/Smoking Status: Tobacco use Status Tobacco use date assessed 01/08/24 04/29/24 12:00 Patient Tobacco Use Status Former Tobacco user 04/29/24 12:00 Tobacco use type Cigarette 04/29/24 12:00 e-Cigarette/Vaping Use Never Used 04/29/24 12:00 PHQ-9: PHQ-9 Score PHQ-9: Total score 1 04/29/24 12:34 Depression Screening Interpretation: Negative Thrive Assessment: Date of Thrive Assessment Date Thrive assessed 01/08/24 04/29/24 12:00 Const General: alert; No acute distress Eyes Conjunctivae: conjunctivae normal Resp Auscultation: clear to auscultation bilaterally Cardio Rate: regular rate Rhythm: regular rhythm GI Inspection: Yes normal to inspection Extrem General: Yes normal to inspection and No edema Results AMB Hemoglobin A1c AMB Hemoglobin A1c 6.7 % Last Edit by Krissy Vergara CMA on 04/29/24 12 :53 AMB Urinalysis, Automated UA Leukoctes 500 Genny/uL Last Edit by Krissy Vergara CMA on 04/29/24 12: 58 UA Nitrite Negative Last Edit by Krissy Vergara CMA on 04/29/24 12:58 UA Urobilinogen 0.2 mg/dL Last Edit by Krissy Vergara CMA on 04/29/24 12:58 UA Protein 0 mg/dL Last Edit by Krissy Vergara CMA on 04/29/24 12:58 UA pH 6.0 Last Edit by Krissy Vergara CMA on 04/29/24 12:58 UA Blood 0 Enoch/uL Last Edit by Krissy Vergara CMA on 04/29/24 12:58 UA Specific [place] 1.015 Last Edit by Krissy Vergara CMA on 04/29/24 12:58 UA Ketone Negative Last Edit by Krissy Vergara CMA on 04/29/24 12:58 UA Bilirubin 0 mg/dL Last Edit by Krissy Vergara CMA on 04/29/24 12:58 UA Glucose 0 mg/dL Last Edit by Krissy Vergara CMA on 04/29/24 12:58 Assessment and Plan Assessment & Plan (1) Type 2 diabetes mellitus with hyperglycemia: Comment: [facility] asso, Dr. Rueda Code(s): E11.65 - Type 2 diabetes mellitus with hyperglycemia Plan: Decrease the amount of carbohydrate intake, pasta, bread, rice and potatoes are all sugar and that is aside from all the sweet stuff, remember that fruits are good but they are Sweet also. Hemoglobin A1c goal of less than 7.0 (2) Obesity (BMI 30-39.9): Code(s): E66.9 - Obesity, unspecified Plan: Diet and exercise (3) Hypertension: Code(s): I10 - Essential (primary) hypertension Plan: Continue with blood pressure medication. Decrease salt intake and exercise patient is on carvedilol 25 mg twice a day and lisinopril 40 mg once a day (4) Hypercholesterolemia: Code(s): E78.00 - Pure hypercholesterolemia, unspecified Plan: Avoid fried foods, chicken skin, eggs, butter margarine, pastries and meat. Be it pork or beef they have a lot of cholesterol LDL goal of less than 100 and triglyceride of less than 150 on simvastatin 10 mg once a day (5) GERD (gastroesophageal reflux disease): Code(s): K21.9 - Gastro-esophageal reflux disease without esophagitis Plan: Avoid the foods that causes that usually spicy foods, tomato products, juices, coffee, soda and foods that your sensitive to. After eating do not lie down, allow 3-4 hours before in lie down. And keep the head of bed above 30 degrees to avoid the acid from going up. (6) Chronic kidney disease (CKD) stage G3a/A1, moderately decreased glomerular filtration rate (GFR) between 45-59 mL/min/1.73 square meter and albuminuria creatinine ratio less than 30 mg/g: Code(s): N18.31 - Chronic kidney disease, stage 3a Plan: Keep well hydrated avoid NSAIDs (7) Right carpal tunnel syndrome: Comment: February 2024This is an abnormal study. 2. There is electrodiagnostic evidence for right moderate-severe median neuropathy at the wrist, consistent with carpal tunnel syndrome. 3. There is no electrodiagnostic evidence for ulnar neuropathy. Code(s): G56.01 - Carpal tunnel syndrome, right upper limb Plan: Patient had a nerve conduction test showing severe right carpal tunnel syndrome and has been advised to see orthopedics. May 15, 2024 surgery (8) Thyroid nodule: Comment: January 2023 Code(s): E04.1 - Nontoxic single thyroid nodule Plan: HAs seen ENDO 11/2023 and will monitor next year (9) Alopecia: Code(s): L65.9 - Nonscarring hair loss, unspecified Plan: will be seeing Dermatology Orders: Orders AMB Urinalysis Automated Today N18.31 - Chronic kidney disease, stage 3a, Z13.9 - Encounter for screening, unspecified AMB Hemoglobin A1c Today Z13.9 - Encounter for screening, unspecified Medications: New amlodipine 2.5 mg PO DAILY 30 tabs 3RF I10 - Essential (primary) hypertension Coding Level of Care Code Est Pt Level 4 (93687) Complex EM visit Add On G2211 Diagnoses Type 2 diabetes mellitus with hyperglycemia E11.65 Obesity (BMI 30-39.9) E66.9 Hypertension I10 Hypercholesterolemia E78.00 GERD (gastroesophageal reflux disease) K21.9 Chronic kidney disease (CKD) stage G3a/A1, moderately decreased glomerular filtration rate (GFR) between 45-59 mL/min/1.73 square meter and albuminuria creatinine ratio less than 30 mg/g N18.31 Right carpal tunnel syndrome G56.01 Thyroid nodule E04.1 Alopecia L65.9
== END 2024-04-29 12:59 | disposition home or self-care (01) ==
PROVIDERS: PCP Internal Medicine; Visit Provider Internal Medicine
DX: I12.9 Hypertensive chronic kidney disease with stage 1 through stage 4 chronic kidney disease, or unspecified chronic kidney disease (principal); E11.65 Type 2 diabetes mellitus with hyperglycemia; N18.31 Chronic kidney disease, stage 3a; E66.9 Obesity, unspecified; Z68.35 Body mass index [BMI] 35.0-35.9, adult; E78.00 Pure hypercholesterolemia, unspecified; K21.9 Gastro-esophageal reflux disease without esophagitis; G56.01 Carpal tunnel syndrome, right upper limb; E04.1 Nontoxic single thyroid nodule; L65.9 Nonscarring hair loss, unspecified
CPT/HCPCS: 81003; 83036; 99214; G2211

== ENCOUNTER 2024-09-09 11:12 | Outpatient (AMB) | payer MEDICARE, OTHER, SELFPAY ==
[2024-09-09 11:16] VITALS: BP 140/82; PULSE 76; O2SAT 96; BMI 35.7
--- NOTE | 2024-09-09 11:16 | MHC.PC.OV ---
Vital Signs 09/09/24 11:16 Height 5 ft 6 in Weight 221 lb BMI 35.7 BP 140/82 H Blood Pressure Location Lt brachial Position Sitting Pulse 76 Pulse Source Pulse Oximeter Pulse Oximetry (%) 96 Oxygen Delivery Method Room Air Intake Visit Reasons: DM Follow Up Allergies sulfamethoxazole [From Bactrim] Adverse Reaction (Severe, Verified 09/09/24 11:17) Joint pain/Hand Pain trimethoprim [From Bactrim] Adverse Reaction (Severe, Verified 09/09/24 11:17) Joint pain/Hand Pain propoxyphene [From Darvon] Adverse Reaction (Mild, Verified 09/09/24 11:17) NAUSEA & VOMITING Tobacco use date assessed: 01/08/24 Fall risk assessment: No Falls in past year Last assessed Fall Risk: 09/09/24 Dental Screening Dental Screen Date: 09/09/24 Did you have a dental visit in the last 12 months?: No Did you have a dental problem in the last 6 months where you did not have access to dental care?: No Was dental information given to patient?: No HPI DM Follow Up HPI Details 79-year-old obese female with diabetes mellitus hypertension hypercholesterolemia GERD chronic kidney disease right carpal tunnel syndrome coming in for follow-up. Last seen in April 29 2024. Declined mammogram declined colonoscopy. This time BP is better with the addition of amlodipine PFSH Medical History (Updated 09/09/24 @ 12:02 by Joo Roberson MD) Numbness of right hand Colonoscopy refused Respiratory tract infection Shortness of breath on exertion Hemoptysis RUQ abdominal pain Breast cancer screening by mammogram Colon cancer screening Cataract History of pericarditis Constipation Thyroid nodule Urge incontinence Vitamin D deficiency Peripheral vascular disease Patellofemoral arthritis GERD (gastroesophageal reflux disease) Obesity (BMI 30-39.9) Hypercholesterolemia Hypertension Surgical History History of umbilical hernia repair History of tubal ligation History of appendectomy History of cholecystectomy Family History (Updated 01/08/24 @ 11:35 by Krissy Vergara CMA) Father CAD (coronary artery disease) Diabetes CVD (cardiovascular disease) Mother CVD (cardiovascular disease) CHF (congestive heart failure) Brother DISH (diffuse idiopathic skeletal hyperostosis) Social History Housing: House Alcohol intake: never Patient Tobacco Use Status: Former Tobacco user Tobacco use type: Cigarette Years Smoked: smoked 6 months during youth but since that time has not smoked any e-Cigarette/Vaping Use: Never Used Second Hand Smoke Exposure: No Current occupational status: retired Cognitive needs: No Hearing needs: No Vision needs: Yes Questionnaire PHQ-9 Over the last 2 weeks, how often have you been bothered by any of the following problems? 1. Little interest or pleasure in doing things: not at all 2. Feeling down, depressed, or hopeless: several days 3. Trouble falling or staying asleep, or sleeping too much: not at all 4. Feeling tired or having little energy: not at all 5. Poor appetite or overeating: not at all 6. Feeling bad about yourself - or that you are a failure or have let yourself or your family down: not at all 7. Trouble concentrating on things, such as reading the newspaper or watching television: not at all 8. Moving or speaking so slowly that other people could have noticed. Or the opposite - being so fidgety or restless that you have been moving around a lot more than usual: not at all 9. Thoughts that you would be better off or of hurting yourself in some way: not at all Total score: 1 Depression Screening Interpretation: Negative Depression Screening Done: Yes 66175 - PHQ-9 Billing: Yes Source: Developed by Drs. Hugo Canales, Chon Paul and colleagues, with an educational sandeep from [employer]. Thrive Questionnaire Date Thrive assessed: 01/08/24 AUDIT C Alcohol Use Questionnaire (AUDIT-C) 1. How often do you have a drink containing alcohol?: Monthly or less 2. How many drinks containing alcohol do you have on a typical day when you are drinking?: 1 or 2 3. How often do you have six or more drinks on one occasion?: Never Total Score: 1 Score Reviewed/Action Taken: No ADAM-7 AMB Questionnaire ADAM-7 Date ADAM - 7 assessed: 01/08/24 Source: Developed by Drs. Hugo Canales, Chon Paul and colleagues, with an educational sandeep from [employer]. Physical exam (Primary Care) Vital Signs: Last Vital Signs Pulse 76 09/09/24 11:16 BP 140/82 H 09/09/24 11:16 Pulse Ox 96 09/09/24 11:16 Oxygen Delivery Method Room Air 09/09/24 11:16 BMI result Body Mass Index 35.7 Tobacco/Smoking Status: Tobacco use Status Tobacco use date assessed 01/08/24 09/09/24 11:20 Patient Tobacco Use Status Former Tobacco user 09/09/24 11:20 Tobacco use type Cigarette 09/09/24 11:20 e-Cigarette/Vaping Use Never Used 09/09/24 11:20 PHQ-9: PHQ-9 Score PHQ-9: Total score 1 09/09/24 11:55 Depression Screening Interpretation: Negative Thrive Assessment: Date of Thrive Assessment Date Thrive assessed 01/08/24 09/09/24 11:20 Const General: alert; No acute distress Eyes Conjunctivae: conjunctivae normal Resp Auscultation: clear to auscultation bilaterally Cardio Rate: regular rate Rhythm: regular rhythm GI Inspection: Yes normal to inspection Extrem General: Yes normal to inspection and No edema Results AMB Hemoglobin A1c AMB Hemoglobin A1c 6.3 % Last Edit by Krissy Vergara CMA on 09/09/24 12:07 Coding Level of Care Code Est Pt Level 4 (87185) Diagnoses Type 2 diabetes mellitus with hyperglycemia E11.65 Obesity (BMI 30-39.9) E66.9 Gastroesophageal reflux disease without esophagitis K21.9 Esophagitis presence: without esophagitis Hypercholesterolemia E78.00 Primary hypertension I10 Hypertension type: primary hypertension Right carpal tunnel syndrome G56.01 Additional Codes PHQ-9 - 08912 - PHQ-9 Billing: Yes ([id number]) Assessment & Plan Assessment & Plan (1) Type 2 diabetes mellitus with hyperglycemia: Comment: [place] Dr. Marybeth Munoz Code(s): E11.65 - Type 2 diabetes mellitus with hyperglycemia Category: Medical Plan: Decrease the amount of carbohydrate intake, pasta, bread, rice and potatoes are all sugar and that is aside from all the sweet stuff, remember that fruits are good but they are Sweet also. Hemoglobin A1c goal of less than 7.0 patient is diet controlled. (2) Obesity (BMI 30-39.9): Code(s): E66.9 - Obesity, unspecified Category: Medical Plan: Diet and exercise (3) GERD (gastroesophageal reflux disease): Code(s): K21.9 - Gastro-esophageal reflux disease without esophagitis Category: Medical Qualifiers: Esophagitis presence: without esophagitis Qualified Code(s): K21.9 - Gastro-esophageal reflux disease without esophagitis Plan: Avoid the foods that causes that usually spicy foods, tomato products, juices, coffee, soda and foods that your sensitive to. After eating do not lie down, allow 3-4 hours before in lie down. And keep the head of bed above 30 degrees to avoid the acid from going up. (4) Hypercholesterolemia: Code(s): E78.00 - Pure hypercholesterolemia, unspecified Category: Medical Plan: Avoid fried foods, chicken skin, eggs, butter margarine, pastries and meat. Be it pork or beef they have a lot of cholesterol LDL goal of less than 100 and triglyceride of less than 150 on simvastatin 10 mg once a day on review of the medication because of the amlodipine needs to discontinue simvastatin. (5) Hypertension: Code(s): I10 - Essential (primary) hypertension Category: Medical Qualifiers: Hypertension type: primary hypertension Qualified Code(s): I10 - Essential (primary) hypertension Plan: Continue with blood pressure medication. Decrease salt intake and exercise presently on lisinopril 40 mg once a day and amlodipine 2.5 mg once a day (6) Right carpal tunnel syndrome: Comment: February 2024This is an abnormal study. 2. There is electrodiagnostic evidence for right moderate-severe median neuropathy at the wrist, consistent with carpal tunnel syndrome. 3. There is no electrodiagnostic evidence for ulnar neuropathy. 06/2024 Dr. Peña Code(s): G56.01 - Carpal tunnel syndrome, right upper limb Category: Medical Plan: Advised to wear wrist brace and seek Orthopedics. seen Dr. Peña surgery R 06/2024 Orders: Orders Complete Blood Count Auto Diff 3 Months E78.00 - Pure hypercholesterolemia, unspecified Comprehensive Met. Panel 3 Months E78.00 - Pure hypercholesterolemia, unspecified Lipid Panel 3 Months E78.00 - Pure hypercholesterolemia, unspecified Vitamin D 25-OH Total 3 Months E78.00 - Pure hypercholesterolemia, unspecified Ferritin 3 Months E78.00 - Pure hypercholesterolemia, unspecified Reticulocyte Count 3 Months E78.00 - Pure hypercholesterolemia, unspecified AMB Hemoglobin A1c Today Z13.9 - Encounter for screening, unspecified Hemoglobin A1c 3 Months E78.00 - Pure hypercholesterolemia, unspecified Free T4 (Free Thyroxine) 3 Months E78.00 - Pure hypercholesterolemia, unspecified Thyroid Stimulating Hormone 3 Months E78.00 - Pure hypercholesterolemia, unspecified Microalbumin, Random (w Creat) 3 Months E11.65 - Type 2 diabetes mellitus with hyperglycemia, E78.00 - Pure hypercholesterolemia, unspecified Vitamin B12 and Folate 3 Months E78.00 - Pure hypercholesterolemia, unspecified Creatinine Urine 3 Months E11.65 - Type 2 diabetes mellitus with hyperglycemia, E78.00 - Pure hypercholesterolemia, unspecified IRON PROFILE 3 Months E78.00 - Pure hypercholesterolemia, unspecified Medications: New atorvastatin 10 mg PO DAILY 30 tabs 3RF E78.00 - Pure hypercholesterolemia, unspecified Discontinued simvastatin Discontinued Reason: Change Referral Type 10 mg PO DAILY 90 tabs 3RF
== END 2024-09-09 12:11 | disposition home or self-care (01) ==
PROVIDERS: PCP Internal Medicine; Visit Provider Internal Medicine
DX: E11.65 Type 2 diabetes mellitus with hyperglycemia (principal); E66.9 Obesity, unspecified; Z68.35 Body mass index [BMI] 35.0-35.9, adult; K21.9 Gastro-esophageal reflux disease without esophagitis; E78.00 Pure hypercholesterolemia, unspecified; I10 Essential (primary) hypertension; G56.01 Carpal tunnel syndrome, right upper limb

== ENCOUNTER → 2024-09-09 11:12 | Outpatient (BNVA) | payer MEDICARE, OTHER, SELFPAY | PROVIDERS: PCP Internal Medicine; Visit Provider Internal Medicine | DX: E11.65 Type 2 diabetes mellitus with hyperglycemia (principal); E66.9 Obesity, unspecified; K21.9 Gastro-esophageal reflux disease without esophagitis; E78.00 Pure hypercholesterolemia, unspecified; I10 Essential (primary) hypertension; G56.01 Carpal tunnel syndrome, right upper limb | CPT/HCPCS: 83036; 96127; 99212 ==

== ENCOUNTER 2025-06-11 10:54 | Outpatient (REF) | payer MEDICARE, SELFPAY ==
--- OUTSIDE RECORDS SUMMARY | 2025-06-11 11:03 | XMS_ITS | Patient Health Record ---
Author Organization [facility] Address [address] [place] [address] Care Team Providers Care Assembler Piano Name Role Phone Hugo Vu Unavailable [phone] Reason For Referral No Information Plan Of Treatment No Information
--- OUTSIDE RECORDS SUMMARY | 2025-06-11 11:03 | XMS_ITS | Continuity of Care Document ---
Author Organization [facility] [address] [place] [address] Phone [phone] Care Team Providers Care Sustainability Officer Name Role Phone Joo Roberson Care Team Information Train Engineer + [phone] Problems Active Problems Provider Date Bilateral lower leg edema Itzel Alaniz M.D. Onset: 12/18/2023 Arthritis Itzel Alaniz M.D. Ons et: 12/18/2023 Seasonal allergy Itzel Alaniz M.D. On set: 12/18/2023 Essential hypertension Antonio Steven Onset: 12/18/2023 Low back pain Itzel Alaniz M.D. Ons et: 12/18/2023 Type 2 diabetes mellitus Itzel Alaniz M.D. Onset: 12/18/2023 Mixed hyperlipidemia Eliazar Steven Onset: 12/18/2023 History of pericarditis Itzel Alaniz M.D. Onset: 12/18/2023 Gastroesophageal reflux disease Itzel Lowe M.D. Onset: 12/18/2023 Obesity Itzel Alaniz M.D. Ons et: 12/18/2023 Non-toxic multinodular goiter Itzel marte M.D. Onset: 12/18/2023 Subclinical hypothyroidism Itzel dillon M.D. Onset: 12/18/2023 Proteinuria Itzel Alaniz M.D. Ons et: 12/18/2023 Chronic kidney disease stage 3 Itzel vargas M.D. Onset: 12/18/2023 Female stress incontinence Itzel dillon M.D. Onset: 12/18/2023 Social History Type Date Description Comments Sex Female Sex Unknown Marital Status Legal Status: Lives With Son [id number] Work Status Retired ETOH Use Rarely consumes alcohol Tobacco Use Start: Unknown End: Unknown Patient is a former smoker for 6 months in her 20s Allergies and adverse reactions Active Allergies Criticality Reaction Severity Comments Date Darvon Unable to assess criticality 12/18/2023 Sulfamethoxazole / Trimethoprim Unable to assess criticality arthralgias 12/18/2023 Medications Active Medications SIG Qnty Indications Ordering Provider Date Tylenol Extra Gzsoxgpc740nw Tablets 2 by mouth twice a day as needed Itzel Alaniz M.D. 12/18/2023 Dtnfoljcr86cu Tablets Take 1/2 tablet once daily Karan Rosa, Abimbola Xogimevsdyk04cq Tablets Take 1 Tablet By Mouth Once Daily Po, Lorenver Xhpghmbdgr96ok Tablets Take 1 Tablet By Mouth Once Daily Po, Lorenver Athgeycbgao331yq Tablets Take 1 Tablet By Mouth Once Daily Po, Lorenver Oxybutynin Chloride ER15mg Tablets ER 24HR Take 1 Tablet By Mouth Once Daily Po, Lorenver Twekchbtik75nq Tablets Take 1 Tablet By Mouth Twice Daily Po, Lorenver Zyrtec Zwbbohd65co Tablets 1 by mouth every day at bedtime Unknown Vital Signs Date Vital Result Comment 12/18/2023 4:04pm BP Systolic 132 mmHg BP Diastolic 80 mmHg Medical Devices Description No Information Available Encounters Type Date Location Provider Dx Diagnosis Office Visit 12/18/2023 3:00p Main Office Itzel Alaniz M.D. E04.2 Nontoxic multinodular goiter E03.9 Hypothyroidism, unsp ecified Assessments Date Code Description Provider 12/18/2023 E04.2 Nontoxic multinodular goiter Itzel Alaniz M.D. 12/18/2023 E03.9 Hypothyroidism, unspecified Itzel Alaniz M.D. Plan of Treatment Future Appointment(s):* 08/11/2025 2:45 pm - Itzel Alaniz M.D. at Main Office 12/18/2023 - Itzel Alaniz M.D.* E04.2 Nontoxic multinodular goiter * E03.9 Hypothyroidism, unspecified * Functional Status Description No Information Available Mental Status Description No Information Available Referrals Description No Information Available
--- OUTSIDE RECORDS SUMMARY | 2025-06-11 11:03 | XMS_ITS | Encounter Summary ---
Author Organization [facility], Address [address] [place] [address] Phone Care Team Providers Care Circuit Board Assembler Name Role Phone Joo Roberson MD Primary Care Provider [phone] Encounter Details Date Type Department Care Team (Late st Contact Info) Description 08/31/2020 Orders Only [facility] [address] [place] [address] Kourtney Quinones MD Chronic kidney disease stage 3; Type 2 diabetes mellitus with diabetic chronic kidney disease (HCC); Essential hypertension Social History Tobacco Use Types Packs/Day Years Used Date Smoking Tobacco: Never Alcohol Use Standard Drinks/Week Comments Yes 0 (1 standard drink = 0.6 oz pure alcohol) Alcoholic Drinks/day: Occasional social drink Comments Unknown Sex and Gender Information Value Date Recorded Sex Assigned at Not on file Legal Sex Female 4:30 PM EST Gender Identity Not on file Sexual Orientation Not on file documented as of this encounter Plan of Treatment Not on file documented as of this encounter Visit Diagnoses Diagnosis Chronic kidney disease stage 3 (HCC) Type 2 diabetes mellitus with diabetic chronic kidney disease (HCC) Essential hypertension documented in this encounter Care Teams Circuit Board Assembler Relationship Specialty Start Date End Date Joo Roberson MD [address] [place], [place] PCP - General 09/01/19 documented as of this encounter
[2025-06-11 11:39] LABS: MANUAL DIFF FLAG NO
[2025-06-11 12:01] LABS: Hematocrit 34.0 % (37.0-47.0); Hemoglobin 11.5 g/dl (12.0-16.0); Imm Gran Abs Auto 0.03 X10*3/uL (0.00-0.03); Imm Gran Pct Auto 0.4 % (0.0-0.4); Lymphocytes Absolute Auto 2.5 X10*3/uL (1.2-4.9); Mean Corpuscular HGB Conc 33.8 g/dl (31.0-35.0); Mean Corpuscular Hemoglobin 29.6 pg (27.0-33.0); Mean Corpuscular Volume 87.4 fL (80.0-98.0); NRBC Abs Auto 0.000 X10*3/uL (0.0-0.012); NRBC Pct Auto 0.0 /100WBC (0.0-0.2); Platelet Count 269 X10*3/uL (160-400); Red Blood Count 3.89 X10*6/uL (4.20-5.50); Reticulocytes Absolute 0.059 X10*6/uL (0.026-0.095); White Blood Count 6.8 X10*3/uL (4.8-10.8)
[2025-06-11 12:07] LABS: Appearance Urine Cloudy; Glucose Urine UA Negative (Negative); PH 5.0 (5.0-9.0); Specific Gravity - Urine 1.020 (1.005-1.025); UMIC TRIGGER UACC YES
[2025-06-11 12:09] LABS: Hemoglobin A1C 158.4693 umol/L; Total Hemoglobin (HGBA1C) 3044.0691 umol/L
[2025-06-11 12:28] LABS: UACC Culture Trigger YES
[2025-06-11 12:36] LABS: Alanine Aminotransferase 24 U/L (0-31); Albumin Level 4.3 g/dL (3.5-5.0); Alkaline Phosphatase 52 U/L (39-117); Anion Gap 13 (12-20); Aspartate Amino Transferase 26 U/L (5-31); Blood Urea Nitrogen 23 mg/dL (9-16); Calcium 9.7 mg/dL (8.4-10.2); Carbon Dioxide 28 mmol/L (22-29); Chloride 105 mmol/L (96-108); Cholesterol 145 mg/dL (<200); Estimated Glomerular Filt Rate 58; HDL Cholesterol 48 mg/dL (>40); Iron 84 mcg/dL (30-160); Percent Iron Saturation 26 % (15-50); Potassium 3.7 mmol/L (3.3-5.1); Sodium 142 mmol/L (135-145); Total Iron Binding Capacity 319 mcg/dL (228-428); Total Protein 7.1 g/dL (6.5-8.0); Triglycerides 112 mg/dL (<150); Unsaturated Iron Binding 235 ug/dL
[2025-06-11 12:46] LABS: Microalbum/Creatinine Ratio Ur 35.4 ug/mg cr (<30)
[2025-06-11 12:55] LABS: Ferritin 244 ng/mL (10-250); Free T4 (Free Thyroxine) 1.05 ng/dL (0.71-1.85); Thyroid Stimulating Hormone 3.21 uIU/mL (0.32-4.0)
[2025-06-11 13:01] LABS: Folate 10.1 ng/mL (> or = 4.0); Vitamin B12 359 pg/mL (200-900)
== END 2025-06-11 10:55 | disposition home or self-care (01) ==
LOC: HO.LAB 10:54
PROVIDERS: PCP Internal Medicine; Visit Provider Internal Medicine
DX: E11.65 Type 2 diabetes mellitus with hyperglycemia (principal); E78.00 Pure hypercholesterolemia, unspecified
CPT/HCPCS: 36415; 80053; 80061; 81001; 82043; 82306; 82570; 82607; 82728; 82746; 83036; 83540; 84439; 84443; 85025; 85045; 87086

== ENCOUNTER 2025-06-14 17:00 | Outpatient (AMB) | payer MEDICARE, OTHER, SELFPAY ==
--- OUTSIDE RECORDS SUMMARY | 2025-06-14 17:03 | XMS_ITS | Continuity of Care Document ---
Author Organization [facility] [address] [place] [address] Phone [phone] Care Team Providers Care Inspection And Testing Supervisor Name Role Phone Joo Roberson Care Team Information Outpatient Physical Therapist [phone] Problems Active Problems Provider Date Bilateral lower [...] Marital Status Legal Status: Lives With Son [id number] Work Status Retired ETOH Use Rarely consumes alcohol Tobacco Use Start: Unknown End: Unknown Patient is a former smoker for 6 months in her 20s Allergies and adverse reactions Active Allergies Criticality Reaction Severity Comments Date Darvon Unable to assess criticality 12/18/2023 Sulfamethoxazole / Trimethoprim Unable to assess criticality arthralgias 12/18/2023 Medications Active Medications SIG Qnty Indications Ordering Provider Date Tylenol Extra Gklfnowy914yt Tablets 2 by mouth twice a day as needed Itzel Alaniz M.D. 12/18/2023 Mrykxfxuc55jz Tablets Take 1/2 tablet once daily Karan Rosa, Abimbola Uaqcotwhlyk25rx Tablets Take 1 Tablet By Mouth Once Daily Po, Lorenver Svzpiwnzbi37az Tablets Take 1 Tablet By Mouth Once Daily Po, Lorenver Titmcvdiroc723vp Tablets Take 1 Tablet By Mouth Once Daily Po, Lorenver Oxybutynin Chloride ER15mg Tablets ER 24HR Take 1 Tablet By Mouth Once Daily Po, Lorenver Blvkenutjy85mh Tablets Take 1 Tablet By Mouth Twice Daily Po, Lorenver Zyrtec Mwaotvv39ah Tablets 1 by mouth every day at [...] M.D. at Main Office 12/18/2023 - Itzel lAaniz M.D.* E04.2 Nontoxic multinodular goiter * E03.9 Hypothyroidism, unspecified * Functional Status Description No Information Available Mental Status Description No Information Available Referrals Description No Information Available
--- OUTSIDE RECORDS SUMMARY | 2025-06-14 17:03 | XMS_ITS | Patient Health Record ---
Author Organization [facility] Address [address] [place] [address] Care Team Providers Care Tape Machine Tailer Name Role Phone Hugo Vu Unavailable [phone] Reason For Referral No Information Plan Of Treatment No Information
--- NOTE | 2025-06-14 17:06 | A.OFFPC_ITS ---
Vital Signs 06/14/25 17:07 Height 5 ft 6 in Weight 232 lb BMI 37.4 BP 150/82 H Blood Pressure Location Lt brachial Position Sitting Pulse 80 Pulse Source Pulse Oximeter Pulse Oximetry (%) 97 Oxygen Delivery Method Room Air Intake Visit Reasons: Follow up Allergies sulfamethoxazole (From Bactrim) Adverse Reaction (Severe, Verified 06/14/25 17:06) Joint pain/Hand Pain trimethoprim (From Bactrim) Adverse Reaction (Severe, Verified 06/14/25 17:06) Joint pain/Hand Pain propoxyphene (From Darvon) Adverse Reaction (Mild, Verified 06/14/25 17:06) NAUSEA & VOMITING Medication List - Last Reconciled 06/14/25 by Joo Roberson MD acetaminophen (Tylenol Extra Strength) 1,000 mg PO Q6H PRN amlodipine 2.5 mg PO DAILY atorvastatin 10 mg PO DAILY carvedilol 25 mg PO BID 90 days cetirizine (Zyrtec) 10 mg PO DAILY PRN docusate sodium (Colace) 100 mg PO DAILY fenofibrate nanocrystallized 145 mg PO DAILY 90 days lisinopril 40 mg PO DAILY oxybutynin chloride ER 15 mg PO BID torsemide 20 mg PO DAILY 90 days [WRIST Splint R As directed] Tobacco use date assessed: 06/14/25 Fall risk assessment: No Falls in past year Last assessed Fall Risk: 06/14/25 Dental Screening Dental Screen Date: 06/14/25 Did you have a dental visit in the last 12 months?: Yes Did you have a dental problem in the last 6 months where you did not have access to dental care?: No Was dental information given to patient?: Patient has dentist HPI Follow up HPI Details [place] [facility] dermatology patient does see [facility] Medical History (Updated 06/14/25 @ 18:06 by Joo Roberson MD) Colon cancer screening Numbness of right hand Colonoscopy refused Respiratory tract infection Shortness of breath on exertion Hemoptysis RUQ abdominal pain Breast cancer screening by mammogram Cataract History of pericarditis Constipation Thyroid nodule Urge incontinence Vitamin D deficiency Peripheral vascular disease Patellofemoral arthritis GERD (gastroesophageal reflux disease) Obesity (BMI 30-39.9) Hypercholesterolemia Hypertension Surgical History History of umbilical hernia repair History of tubal ligation History of appendectomy History of cholecystectomy Family History (Updated 01/08/24 @ 11:35 by Krissy Vergara [facility]) Father CAD (coronary artery disease) Diabetes CVD (cardiovascular disease) Mother CVD (cardiovascular disease) CHF (congestive heart failure) Brother DISH (diffuse idiopathic skeletal hyperostosis) Social History Housing: House Alcohol intake: never Patient Tobacco Use Status: Former Tobacco user Tobacco use type: Cigarette Years Smoked: smoked 6 months during youth but since that time has not smoked any e-Cigarette/Vaping Use: Never Used Second Hand Smoke Exposure: No Current occupational status: retired Cognitive needs: No Hearing needs: No Vision needs: Yes Questionnaire PHQ-9 Over the last 2 weeks, how often have you been bothered by any of the following problems? 1. Little interest or pleasure in doing things: not at all 2. Feeling down, depressed, or hopeless: not at all 3. Trouble falling or staying asleep, or sleeping too much: not at all 4. Feeling tired or having little energy: several days 5. Poor appetite or overeating: not at all 6. Feeling bad about yourself - or that you are a failure or have let yourself or your family down: not at all 7. Trouble concentrating on things, such as reading the newspaper or watching television: not at all 8. Moving or speaking so slowly that other people could have noticed. Or the opposite - being so fidgety or restless that you have been moving around a lot more than usual: not at all 9. Thoughts that you would be better off or of hurting yourself in some way: not at all Total score: 1 Depression Screening Interpretation: Positive Depression Screening Done: Yes Source: Developed by Drs. Hugo Canales, Isa Thomason, Chon Post and colleagues, with an educational sandeep from [employer]. Thrive Questionnaire Date Thrive assessed: 06/14/25 I am a: Patient What is your living situation today?: I have a steady place to live Within the past 12 months, did the food you bought not last and you didn't have the money to get more?: Never true Within the past 12 months, did you worry whether your food would run out before you got money to buy more?: Never true Do you have trouble paying for medicines?: No Do you have trouble getting transportation to medical appointments?: No Do you have trouble paying your heating and electricity bill?: No Do you have trouble taking care of your child, family member or friend?: No Do you have trouble with day-to-day activities such as bathing, preparing meals, shopping, managing finances, etc.?: No Are you currently unemployed and looking for a job?: No Are you interested in more education?: No Please select the resources that you would like help with: None Currently or been in a relationship where the following occur: No concerns reported THRIVE Score: 0 AUDIT C Alcohol Use Questionnaire (AUDIT-C) 1. How often do you have a drink containing alcohol?: Never 3. How often do you have six or more drinks on one occasion?: Never Total Score: 0 ADAM-7 AMB Questionnaire ADAM-7 Date ADAM - 7 assessed: 06/14/25 Feeling nervous, anxious, or on edge: 0 = Not at all Not being able to stop or control worryin = Not at all Worrying too much about different things: 0 = Not at all Trouble relaxin = Not at all Being so restless that it is hard to sit still: 0 = Not at all Becoming easily annoyed or irritable: 0 = Not at all Feeling afraid as if something awful might happen: 0 = Not at all Total ADAM-7 score (0-4 normal; 5-9 mild; 10-14 moderate; 15-21 severe): 0 Source: Developed by Drs. Hugo Canales, Isa Thomason, Chon Post and colleagues, with an educational sandeep from [employer]. Review of Systems Const Denies poor appetite and Denies weakness Eyes Denies no additional complaints ENT Reports Normal hearing present, Denies dizziness, Denies nasal congestion, Denies tinnitus and Denies sore throat Card Denies chest pain, Denies syncope, Denies rapid heart rate and Denies dyspnea Resp Denies cough and Denies dyspnea GI Denies change in stool character, Reports constipation, Denies diarrhea, Denies nausea and Denies vomiting Denies urinary frequency, Denies difficulty voiding and Denies dysuria Neuro Reports Normal hearing present, Denies confusion, Denies dizziness, Denies syncope and Denies weakness Psych Denies confusion Physical exam (Primary Care) Vital Signs: Last Vital Signs Pulse 80 06/14/25 17:07 BP 150/82 H 06/14/25 17:07 Pulse Ox 97 06/14/25 17:07 Oxygen Delivery Method Room Air 06/14/25 17:07 BMI result Body Mass Index 37.4 Tobacco/Smoking Status: Tobacco use Status Tobacco use date assessed 06/14/25 06/14/25 17:11 Patient Tobacco Use Status Former Tobacco user 06/14/25 17:11 Tobacco use type Cigarette 06/14/25 17:11 e-Cigarette/Vaping Use Never Used 06/14/25 17:11 PHQ-9: PHQ-9 Score PHQ-9: Total score 1 06/14/25 17:55 Depression Screening Interpretation: Positive Thrive Assessment: Date of Thrive Assessment Date Thrive assessed 06/14/25 06/14/25 17:11 Currently or been in a relationship where the following occur: No concerns re ported Const General: No confusion Orientation/consciousness: No confusion HENMT Head: Yes normocephalic Ears: external ears normal and TM's normal bilaterally Face and sinus: Yes normal facial exam Mouth: moist mucous membranes Throat: Yes tonsils normal Eyes Conjunctivae: conjunctivae normal Pupils: Equal, round and reactive pupils present and Pupil accommodation reflex normal Direct Ophthalmoscopy: normal light reflex Neck Neck: No lymphadenopathy Thyroid: Thyroid normal Chest Chest palpation & inspection: normal inspection of the chest Resp Effort & Inspection: normal respiratory effort and no audible wheezes Auscultation: clear to auscultation bilaterally, no crackles, no wheezes and lung sounds not diminished Cardio Rate: regular rate Rhythm: regular rhythm Peripheral pulses: radial pulses present and dorsalis pedis present GI Palpation (GI): no masses Auscultation: normal bowel sounds and normoactive bowel sounds Rectal Exam - Female: deferred Skin General skin exam: no rashes or lesions noted Rashes: no rashes Neuro General: No confusion Cranial nerves: Yes Equal, round and reactive pupils present and Yes Normal hearing present Cognition (Neuro): normal cognition Gait exam (Neuro): Normal gait present Motor exam (neuro): 5/5 motor strength present throughout Deep tendon reflexes (DTR's): Right brachioradialis reflex intensity grade: 2+, Left brachioradialis reflex intensity grade: 2+, Right patellar reflex intensity grade: 2+ and Left patellar reflex intensity grade: 2+ Extrem General: No edema Coding Level of Care Code Est Pt Prev Care >65y(12654) Diagnoses Medicare annual wellness visit, initial Z00.00 Alopecia L65.9 Gastroesophageal reflux disease without esophagitis K21.9 Esophagitis presence: without esophagitis Type 2 diabetes mellitus with hyperglycemia E11.65 Obesity (BMI 30-39.9) E66.9 Hypercholesterolemia E78.00 Primary hypertension I10 Hypertension type: primary hypertension Colon cancer screening Z12.11 UTI (urinary tract infection) N39.0 Assessment & Plan Assessment & Plan (1) Medicare annual wellness visit, initial: Code(s): Z00.00 - Encounter for general adult medical examination without abnormal findings Category: Medical Plan: Patient is advised to eat healthy, keep well hydrated, keep active and have adequate sleep. (2) Alopecia: Code(s): L65.9 - Nonscarring hair loss, unspecified Category: Medical Plan: Patient has seen Dermatology and has been placed on minoxidil foam (3) GERD (gastroesophageal reflux disease): Code(s): K21.9 - Gastro-esophageal reflux disease without esophagitis Category: Medical Qualifiers: Esophagitis presence: without esophagitis Qualified Code(s): K21.9 - Gastro-esophageal reflux disease without esophagitis Plan: Avoid the foods that causes that usually spicy foods, tomato products, juices, coffee, soda and foods that your sensitive to. After eating do not lie down, allow 3-4 hours before in lie down. And keep the head of bed above 30 degrees to avoid the acid from going up. (4) Type 2 diabetes mellitus with hyperglycemia: Comment: [facility] assDr. Marybeth morton Code(s): E11.65 - Type 2 diabetes mellitus with hyperglycemia Category: Medical Plan: Decrease the amount of carbohydrate intake, pasta, bread, rice and potatoes are all sugar and that is aside from all the sweet stuff, remember that fruits are good but they are Sweet also. Hemoglobin A1c goal of less than 7.0 diet controlled (5) Obesity (BMI 30-39.9): Code(s): E66.9 - Obesity, unspecified Category: Medical Plan: Diet and exercise (6) Hypercholesterolemia: Code(s): E78.00 - Pure hypercholesterolemia, unspecified Category: Medical Plan: Avoid fried foods, chicken skin, eggs, butter margarine, pastries and meat. Be it pork or beef they have a lot of cholesterol LDL goal of less than 100 and triglyceride of less than 150 on atorvastatin 10 mg once a day (7) Hypertension: Code(s): I10 - Essential (primary) hypertension Category: Medical Qualifiers: Hypertension type: primary hypertension Qualified Code(s): I10 - Essential (primary) hypertension Plan: Continue with blood pressure medication. Decrease salt intake and exercise on amlodipine 2.5 mg once a day carvedilol 25 mg twice a day lisinopril 40 mg once a day (8) Colon cancer screening: Code(s): Z12.11 - Encounter for screening for malignant neoplasm of colon Category: Medical Plan: Patient is reminded about colonoscopy (9) UTI (urinary tract infection): Code(s): N39.0 - Urinary tract infection, site not specified Category: Medical Plan History of Present Illness The patient is a 80-year-old female presenting for an annual wellness visit. The patient has a history of obesity, with a recent weight gain of 11 pounds. She also has a history of hypertension, hypercholesterolemia, gastroesophageal reflux disease, chronic kidney disease, and diabetes mellitus. The patient was last seen in August 2024, and her colon cancer screening was performed with a stool test in March 2022. She is due for a mammogram, which she has declined. The patient has been diagnosed with androgenic alopecia and was prescribed minoxidil topical foam. She also has seborrheic keratosis and blue nevi. Recent blood work revealed anemia with hemoglobin levels of 11.5 and hematocrit of 34. Her renal function and electrolytes are within normal limits, and her hemoglobin A1c is 6.9. Cholesterol levels show an LDL of 75, and other vitamins and thyroid levels are normal. Urine testing indicated proteinuria. Health Maintenance - Colon cancer screening with stool test performed in March 2022 - Mammogram due but declined by the patient Social History Review of Systems - General: Reports weight gain of 11 pounds - Dermatological: Reports alopecia, seborrheic keratosis, and blue nevi Physical Exam General: Cooperative, healthy appearing, comfortable, no acute distress and well developed Orientation: Patient oriented x3 Limitations: No limitations Head: Normal to inspection Ears: Hearing grossly normal bilaterally Nose: Normal external nose present Face and sinus: Normal facial exam Eyes: Appearance normal, both eyes and all related structures Neck: Normal visual inspection and Yes full ROM Respiratory: Normal respiratory effort and able to speak in complete sentences. Clear to auscultation bilaterally Cardiovascular: Regular rate and rhythm. Normal S1 and S2 GI: Normal to inspection. Soft to palpation and nontender Skin: No rashes or lesions noted Neuro: Patient oriented x3 Extremities: Normal to inspection Results - Labs: Hemoglobin 11.5, Hematocrit 34, Hemoglobin A1c 6.9, LDL 75 - Urine test: Proteinuria Plan The patient will continue with her current medication regimen for hypertension, including amlodipine, carvedilol, and lisinopril. Her cholesterol management will be maintained with atorvastatin, aiming for an LDL goal of less than 100 and triglycerides less than 150. For diabetes management, the target hemoglobin A1c is less than 7.0, and the condition is currently diet-controlled. The patient is advised to follow a diet and exercise plan to manage her weight and overall health. The patient has been prescribed minoxidil topical foam for androgenic alopecia and is advised to continue follow-up with dermatology for seborrheic keratosis and blue nevi. Regular monitoring of renal function and proteinuria is recommended due to her chronic kidney disease. Patient was informed and verbally consented to the use of an ambient scribe for clinic note documentation during this visit. Discussion Notes Patient Instructions - Continue taking prescribed medications for hypertension and cholesterol. - Follow a diet and exercise plan to manage weight and diabetes. - Use minoxidil topical foam as directed for hair loss. - Schedule regular follow-ups with dermatology for skin conditions. - Monitor blood sugar levels and maintain a diet-controlled diabetes management plan. - Regularly check renal function and proteinuria levels. Orders: Referrals Cologuard Test Z12.11 - Encounter for screening for malignant neoplasm of colon Medications: New nitrofurantoin monohyd/m-cryst 100 mg (Macrobid) must administer with a meal/food 100 mg PO Q12H 14 caps 0RF 7 days N39.0 - Urinary tract infection, site not specified tirzepatide (Mounjaro) for 4 weeks 2.5 mg (0.5 mL) subcut QWEEK 2 mL 2RF E11.65 - Type 2 diabetes mellitus with hyperglycemia
[2025-06-14 17:07] VITALS: BP 150/82; PULSE 80; O2SAT 97; BMI 37.4
== END 2025-06-14 18:27 | disposition home or self-care (01) ==
LOC: HO.HMCH 17:01
PROVIDERS: PCP Internal Medicine; Visit Provider Internal Medicine
DX: Z00.00 Encounter for general adult medical examination without abnormal findings (principal); E11.65 Type 2 diabetes mellitus with hyperglycemia; E66.9 Obesity, unspecified; Z68.37 Body mass index [BMI] 37.0-37.9, adult; L65.9 Nonscarring hair loss, unspecified; K21.9 Gastro-esophageal reflux disease without esophagitis; E78.00 Pure hypercholesterolemia, unspecified; I10 Essential (primary) hypertension; Z12.11 Encounter for screening for malignant neoplasm of colon; N39.0 Urinary tract infection, site not specified